=== PATIENT | male | born 1940 | race Caucasian/White ===

== ENCOUNTER → 2023-06-02 11:41 | Outpatient (REF) | payer MEDICARE, BC, SELFPAY | LOC: RAD 11:41 | PROVIDERS: ATTENDING PHYSICIAN Registered Nurse | DX: M89.8X9 Other specified disorders of bone, unspecified site (principal) | CPT/HCPCS: 73080 ==

== ENCOUNTER → 2023-06-13 08:38 | Outpatient (REF) | payer MEDICARE, BC, SELFPAY | LOC: RAD 08:38 | PROVIDERS: ATTENDING PHYSICIAN Nurse Practitioner Adult Health | DX: M25.561 Pain in right knee (principal) | CPT/HCPCS: 73564 ==

== ENCOUNTER → 2023-07-21 16:23 | Outpatient (REF) | payer MEDICARE, BC, SELFPAY | LOC: PAVMRI 16:23 | PROVIDERS: ATTENDING PHYSICIAN Specialist; FAMILY PHYSICIAN Registered Nurse | DX: R26.81 Unsteadiness on feet (principal) | CPT/HCPCS: 70551 ==

== ENCOUNTER 2023-10-08 11:48 | Emergency (ER) | payer MEDICARE, BC, SELFPAY ==
[2023-10-08 11:51] VITALS: BP 155/59
[2023-10-08 12:27] VITALS: BMI 27.3
[2023-10-08 12:36] VITALS: BP 164/61
--- NOTE | 2023-10-08 12:47 | ED.GENMED ---
History of Present Illness
General
Chief Complaint: Chest Pain
Source: patient
Exam Limitations: none
Time Seen by Provider: 10/08/23 12:40
Nursing documentation reviewed up to this point in time: agreed with
History of Present Illness
History of Present Illness:
83-year-old male with past medical history of CABG diabetes, hypertension hyperlipidemia presents to the ER with chest pain. Patient reports over 11 AM while sitting he felt pain to the left chest and left armpit area which radiated to his left arm
down to his fingertips. He had no associate shortness breath nausea vomiting with episode. He does report he believes 3-4 nights ago he was awoken by similar episode. He did take 650 mg of adult strength aspirin.
This does not feel similar to when he had his bypass surgery years ago. That was done in [place]. He is followed however by Dr. Lin here at [facility]. He presently reports pain is about a 2 out of 10' and going away.'
Past History
Past History
ED Past Medical History: CAD, COPD, HTN, Hypercholesterolemia, NIDDM, Hypothyroidism and Other
ED Past Surgical History: Cardiac and Other
Social History
Tobacco: Former smoker (Quit 35 years ago)
Alcohol: None
Personal:
Living: with family
Employment: Retired
Family History
Family History: Other (Noncontributory)
Review of Systems
Review of Systems
Allergies reviewed?: Yes
All Other Systems: ROS reviewed and negative except as documented in HPI and ROS
Constitutional: Reports no symptoms; Denies fever, fatigue or chills
EENT: Reports no symptoms
Respiratory: Reports no symptoms; Denies trouble breathing
Cardiac: Reports chest pain; Denies diaphoresis, palpitations or syncope
ABD/GI: Reports no symptoms
: Reports no symptoms
Musculoskeletal: Reports no symptoms
Skin: Reports no symptoms
Neurological: Reports no symptoms
Psychiatric: Reports no symptoms
Phy Exam
General Physical Exam
General Presentation: no apparent distress
General age: appears stated age
General Skin: warm and dry
General Habitus: normal
General Mental: alert
General Hydration: appears well hydrated
Cardiovascular Exam
Cardiovascular Exam: regular rate/rhythm, no murmur and normal peripheral pulses
Pulmonary Exam
Pulmonary Exam: lungs clear and no respiratory distress
Neurological Exam
Neurological Exam: alert and oriented x3
Musculoskeletal Exam
Musculoskeletal Exam: full ROM
Skin Exam
Skin Exam: normal color and warm/dry
Psychiatric Exam
Psychiatric Exam: normal mood/affect
Scores
Heart Score for Chest Pain Patients
STEMI patient?: Not applicable
Course
Orders/Labs/Results
Orders:
Orders
10/08/23 11:54
Electrocardiogram (*1) Urgent
Reason for Study: Chest Pain
EKG- Treatment ONCE
10/08/23 12:38
Complete Blood Count/With Diff Urgent
Comprehensive Metabolic Panel Urgent
Troponin I Urgent
10/08/23 12:59
Chest [CR Chest - 2 Views ] Urgent
Comment:
Reason For Exam: cp
10/08/23 13:49
Electrocardiogram (*1) Stat
Reason for Study: Other
Other Reason for Exam: chest pain
EKG- Treatment ONCE
10/08/23 15:19
Troponin I Urgent
Abnormal Lab Results
10/08/23
12:38
RBC 4.14 L 10^6/uL
(4.70-6.10)
Hgb 11.8 L g/dL
(13.0-18.0)
Hct 34.8 L %
(39.0-52.0)
MPV 10.5 H fL
(7.4-10.4)
Absolute Lymphs (auto) 1.0 L 10^3/uL
(1.2-3.4)
Immature Gran % 0.7 H %
(0-0.5)
Lymphocytes % 17.9 L %
(20.5-51.1)
Sodium 134 L mmol/L
(135-145)
Glucose 118 H mg/dl
(70-99)
Total Protein 6.1 L g/dl
(6.3-8.2)
10/08/23 12:38
10/08/23 12:38
Vital Signs
Initial and Last Documented VS:
Initial Vital Signs
Temp Pulse Resp BP
98.0 F 53 18 155/59
10/08/23 11:51 10/08/23 11:51 10/08/23 11:51 10/08/23 11:51
Last Documented Vital Signs
Temp Pulse Resp BP Pulse Ox
98.0 F 62 16 138/60 98
10/08/23 11:51 10/08/23 14:30 10/08/23 14:30 10/08/23 14:00 10/08/23 14:30
MDM/Problems Addressed
MDM/Problems Addressed:
Patient is an 83-year-old male who presented to the ER with chest pain. He had chest pain several days ago and then had chest pain/left armpit pain that radiated to his arm prior to coming to the ER while resting. He had no associated shortness of
breath with symptoms. He presented awake alert no acute distress.
Patient initially presented with chest pain around 2 out of 10 but resolving and resolved on his own. No acute findings on EKG negative cardiac troponin. Chest x-ray shows chronic obstructive pulmonary disease.
Patient had 2 negative cardiac troponins and no acute findings on ekg. will DC home with chest pain hotline follow-up for DR Lin.
Chronic conditions affecting care:
hx of previous CABG
*Radiology
Radiology exam reviewed: radiology read reviewed
*Pulse Oximetry
Patient hypoxic: no
*EKG
Interpreted by ED Provider?: Yes
Heart Rate: 54
Rate: bradycardiac
Rhythm: sinus
Ischemia: no ischemia
*Critical Care Note
Total Time (30-74mins, 75-104mins- exclusive of procedures): Not Applicable
ED Attending Note
-
Portions of this chart may have been created with voice recognition software.� Occasional wrong word or��sound alike� substitutions may have occurred due to the inherent limitations of voice recognition software.
Discharge Plan
Departure
Patient Disposition: Home (Routine Discharge)
Date of Disposition: 10/08/23
Time of Disposition: 16:20
Patient with high blood pressure during this ER visit?: Yes
Condition: Fair
Covid-19: Not Applicable
Discharge Problem:
Chest pain
Instructions: Chest Pain CBC Follow Up
Prescriptions:
No Action
levothyroxine 112 MCG tablet
112 mcg PO DAILY
carvedilol 12.5 MG tablet
25 mg PO BID
omeprazole 40 MG capsule,delayed release(DR/EC)
40 mg PO Daily
rosuvastatin 20 MG tablet
20 mg PO QPM
cholecalciferol (vitamin D3) 1,000 UNITS tablet
1,000 units PO DAILY
aspirin [Adult Aspirin Regimen] 81 MG tablet,delayed release (DR/EC)
81 mg PO DAILY
hydrochlorothiazide 25 MG tablet
25 mg PO DAILY
olmesartan [Benicar] 40 MG tablet
40 mg PO DAILY
cyanocobalamin (vitamin B-12) 1,000 MCG tablet
1,000 mcg PO HS
acetaminophen 500 MG tablet
500 mg PO PRN PRN (Reason: aches and pains)
doxazosin 2 MG tablet
2 mg PO HS
ibuprofen 200 MG tablet
400 - 600 mg PO Q6HPRN PRN (Reason: moderate pain) Qty: 1 0RF
metformin 500 MG tablet
500 mg PO BID Qty: 0 0RF
Rx Instructions:
HOLD post cath- OK to resume on 11/23 in PM
nifedipine 30 MG tablet extended release
30 mg PO DAILY Qty: 90 2RF
metronidazole 500 MG tablet
500 mg PO TID Qty: 20 0RF
levofloxacin 500 MG tablet
500 mg PO DAILY Qty: 6 0RF
Referrals:
Frankie Lin MD [Active] -
Dante Hoover CRNP [Family Provider] -
Activity Restrictions/Additional Instructions:
As discussed follow-up with cardiology
You were placed on cardiology hotline which means you should receive a phone call from the cardiology group in the next several days however if you do not please give them a call to schedule appointment. Return if any worsening of symptoms.
Interventions
Interventions:
*Risk Screen - Suicide Last Done: 10/08/23 11:51
*General Assessment Last Done: 10/08/23 11:51
*Neglect/Abuse Screening Last Done: 10/08/23 11:51
*ED COVID-19 Vaccine History Last Done: 10/08/23 11:51
ED- Cardiac Assessment Last Done: 10/08/23 13:10
Discharge Date and Time
Print Language: FRISIAN
[2023-10-08 12:53] VITALS: BP 164/62
[2023-10-08 13:00] VITALS: BP 142/58
[2023-10-08 13:12] LABS: % Basophils 0.5 % (0-2); % Eosinophils 1.6 % (0-6); % Immature Granulocytes 0.7 % (0-0.5); % Lymphocytes 17.9 % (20.5-51.1); % Neutrophils 72.3 % (42.2-75.2); ALT (SGPT) 13 U/L (0-50); AST (SGOT) 19 U/L (17-59); Absolute Eosinophils 0.1 10^3/uL (0-0.7); Absolute Monocytes 0.4 10^3/uL (0.1-0.6); Absolute Neutrophils 4.1 10^3/uL (1.4-6.5); Alkaline Phosphatase 65 U/L (38-126); Blood Urea Nitrogen 18 mg/dl (9-20); Calcium 9.2 mg/dl (8.4-10.2); Carbon Dioxide 25 mmol/L (22-30); Chloride 103 mmol/L (98-107); Estimated Creatinine Clearance 40 ml/min; Glucose 118 mg/dl (70-99); Hematocrit 34.8 % (39.0-52.0); Hemoglobin 11.8 g/dL (13.0-18.0); Mean Corp Hgb Conc. 33.9 g/dL (33.0-37.0); Mean Corpuscular Hgb 28.5 pg (27.0-31.0); Mean Corpuscular Volume 84.1 fL (80.0-94.0); Mean Platelet Volume 10.5 fL (7.4-10.4); Nucleated Red Blood Cells % 0 % (-); Platelet Count 191 10^3/uL (130-400); Potassium 4.6 mmol/L (3.5-5.1); Red Blood Cell Count 4.14 10^6/uL (4.70-6.10); Red Cell Dist. Width 13.5 % (11.5-14.5); Sodium 134 mmol/L (135-145); Total Bilirubin 0.5 mg/dl (0.2-1.3); Total Protein 6.1 g/dl (6.3-8.2); White Blood Cell Count 5.7 10^3/uL (4.8-10.8); eGFR 54.51
[2023-10-08 13:17] LABS: Troponin I < 0.012 ng/ml
[2023-10-08 14:00] VITALS: BP 138/60
[2023-10-08 15:49] LABS: Troponin I < 0.012 ng/ml
== END 2023-10-08 16:57 | disposition home or self-care (01) ==
LOC: EMR 11:48
PROVIDERS: Emergency Medicine; Nurse Practitioner; EMERGENCY PHYSICIAN Emergency Medicine; FAMILY PHYSICIAN Registered Nurse; REFERRING PHYSICIAN Internal Medicine
DX: R07.89 Other chest pain (principal); M79.602 Pain in left arm; I10 Essential (primary) hypertension; E11.9 Type 2 diabetes mellitus without complications; E78.00 Pure hypercholesterolemia, unspecified; I25.10 Atherosclerotic heart disease of native coronary artery without angina pectoris; E03.9 Hypothyroidism, unspecified; J44.9 Chronic obstructive pulmonary disease, unspecified; K57.90 Diverticulosis of intestine, part unspecified, without perforation or abscess without bleeding; M19.90 Unspecified osteoarthritis, unspecified site; Z95.1 Presence of aortocoronary bypass graft; Z87.891 Personal history of nicotine dependence; Z79.82 Long term (current) use of aspirin; Z79.84 Long term (current) use of oral hypoglycemic drugs; Z88.0 Allergy status to penicillin; Z96.652 Presence of left artificial knee joint
CPT/HCPCS: 99284; 71046; 80053; 84484; 85025; 93005

== ENCOUNTER 2023-10-14 06:03 | Day surgery (SDC) | payer MEDICARE, BC, SELFPAY ==
[2023-10-14] VITALS (9 sets, daily range): BP systolic 120–147; BP diastolic 44–58; BMI 28.3
[2023-10-14 06:58] LABS: Glucose - Point of Care 132 mg/dl (70-99)
[2023-10-14] MEDS: NSS 238 ML IV (07:00)
--- NOTE | 2023-10-14 08:41 | ITS.CL.CATH ---
Drop Worker - Catheterization
Cardiac Catheterization
Procedure Report:
CARDIAC CATHETERIZATION REPORT
Date of Procedure: 10/14/2023
Referring: Pete Velasco M.D.
INDICATION: Left-sided chest pain, known coronary artery disease status post two-vessel bypass.
PROCEDURE:
1. Left heart catheterization.
2. Coronary angiography.
3. Bypass angiography.
ACCESS:
6 Jordanian left radial artery.
CATHETERS:
1. 5 Jordanian GUEVARA.
2. 5 Jordanian JL 4.
3. 5 Jordanian JR4.
HEMODYNAMIC DATA
Weight (kg): 79.3
AO (s/d/x, mmHg): 125/53/83
LV (s/x mmHg): 125/14
LEFT VENTRICULOGRAPHY: Not performed.
CORONARY ANGIOGRAPHY
Dominance: Right.
Left Main: Chronically totally occluded at its origin.
LAD: Normal size vessel giving rise to several small diagonals. The LAD is chronically totally occluded at its midportion. The distal LAD is supplied by a patent SALES graft.
Ramus: Congenitally absent
Circumflex: Normal size vessel giving rise to 2 obtuse marginals. There is a 75% lesion in the proximal margin of OM1. OM 2 has moderate, diffuse disease in its proximal and midportion but is a relatively small vessel, <2 mm in diameter. The
circumflex system is supplied by a patent vein graft to OM1 that is anastomosed distal to the 75% OM1 lesion.
RCA: Normal size, dominant vessel. There are 30-40% lesions in the mid vessel. There is a 40% lesion in the mid RPDA.
BYPASS GRAFT ANGIOGRAPHY
SALES to LAD: Large size graft with end-to-side anastomosis to the distal LAD. There is no evidence of stenosis or graft degeneration.
SVG to OM1: Large size graft with end-to-side anastomosis to mid OM1. There is no evidence of stenosis or graft degeneration. The insertion of the SVG graft is distal to the 75% OM1 lesion.
INTERVENTION(S)
None.
Closure Device: Vascular band.
Radiation (mGy): 435.50
DAP (cm2.Gy): 38.7489
Fluoroscopy time (minutes): 7.7
Sedation time (minutes): 33
CONCLUSIONS
1. Right dominant circulation with 30-40% lesions in the mid RCA, a 40% lesion in the mid RPDA, a chronically totally occluded left main coronary artery, chronically totally occluded mid LAD, a 75% lesion in the proximal margin of OM1 and a
moderately, diffusely diseased small OM 2, status post prior bypass (patent SALES to mid LAD, beyond the DIRECTOR PRODUCT SAFETY, patent SVG to OM1, distal to the 75% OM1 lesion).
2. Top normal to mildly elevated filling pressures (LVEDP = 14 mmHg at 79.3 kg).
RECOMMENDATIONS:
1. Expectant management after cardiac catheterization via left radial approach.
2. Limited weight bearing on the left wrist for one week.
3. Continue current medical management.
4. If the patient were to have anginal chest pain, the insertion of the SVG to OM1 graft is at a generally favorable angle to allow for PCI of the 75% lesion if that was felt to be an appropriate maneuver for anginal chest pain, but the patient's
episode of chest pain is not convincing for true anginal equivalent and his coronary artery disease appears stable.
Copy to: Frankie Lin M.D., Ph.D., YOLANDA Lanier
Giuseppe Cardenas DO, FACC, FACP
[2023-10-14] MEDS: NSS 1000 IV (08:51)
[2023-10-14 10:28] LABS: Glucose - Point of Care 204 mg/dl (70-99)
== END 2023-10-14 11:05 | disposition home or self-care (01) ==
LOC: CATH 06:03
PROVIDERS: ATTENDING PHYSICIAN Internal Medicine Cardiovascular Disease; FAMILY PHYSICIAN Registered Nurse
DX: I25.10 Atherosclerotic heart disease of native coronary artery without angina pectoris (principal); I25.810 Atherosclerosis of coronary artery bypass graft(s) without angina pectoris; R07.89 Other chest pain; I25.82 Chronic total occlusion of coronary artery; Z95.1 Presence of aortocoronary bypass graft; Z79.84 Long term (current) use of oral hypoglycemic drugs; Z79.899 Other long term (current) drug therapy; Z79.82 Long term (current) use of aspirin; J44.9 Chronic obstructive pulmonary disease, unspecified; E11.9 Type 2 diabetes mellitus without complications; E03.9 Hypothyroidism, unspecified
CPT/HCPCS: 82962; 93459; C1894; Q9967

== ENCOUNTER → 2024-06-07 10:54 | Outpatient (REF) | payer MEDICARE, BC, SELFPAY | LOC: DHSLP 10:54 | PROVIDERS: ATTENDING PHYSICIAN Internal Medicine; FAMILY PHYSICIAN Registered Nurse | DX: G47.33 Obstructive sleep apnea (adult) (pediatric) (principal) | CPT/HCPCS: 95800 ==

== ENCOUNTER 2024-09-14 14:28 | Inpatient (IN) | payer MEDICARE, BC, SELFPAY ==
[2024-09-14 09:37] VITALS: BP 148/52
--- NOTE | 2024-09-14 10:33 | ED.GENMED ---
History of Present Illness
General
Chief Complaint: Chest Pain
Source: patient
Time Seen by Provider: 09/14/24 09:57
History of Present Illness
History of Present Illness:
84-year-old male who presents for evaluation of chest pain. Patient states that the other day he was walking up a hill and developed chest pressure. Chest pressure resolved after little bit of rest. Patient states that last night he awoke again
with chest pain. States it lasted maybe about 15 minutes and resolved after he sat up. Denies shortness of breath. Does state that he has had a two-vessel CABG in the past. The patient states his symptoms are very similar to what they were in
the past. Currently offers no complaints and has no chest pain. Patient presented to urgent care and was sent for evaluation. Case was discussed with the urgent care physician Dr. Torres
Past History
Past History
ED Past Medical History: CAD, COPD, HTN, Hypercholesterolemia, NIDDM, Hypothyroidism and Other
ED Past Surgical History: Cardiac and Other
Social History
Tobacco: Former smoker (Quit 35 years ago)
Alcohol: None
Personal:
Living: with family
Employment: Retired
Family History
Family History: Other (Noncontributory)
Phy Exam
Physical Exam
Physical Exam:
CONSTITUTIONAL Patient alert and oriented to person, place and time. Well-appearing. Vital signs reviewed.
HEAD atraumatic, normocephalic.
EYES eyelids normal to inspection, Extraocular muscles intact, Conjunctiva normal, Sclera normal.
NECK normal range of motion, Trachea midline, no jugular venous distention.
RESPIRATORY CHEST No respiratory distress noted, Chest expansion equal, Bilateral breath sounds clear.
CARDIOVASCULAR regular rate and rhythm, Heart sounds normal.
ABDOMEN abdomen nontender, Bowel sounds normal. No distention.
BACK normal inspection, no obvious deformities
UPPER EXTREMITY range of motion normal, Motor strength normal, no cyanosis, no edema.
LOWER EXTREMITY range of motion normal, Motor strength normal, no cyanosis, no edema.
NEURO Speech normal, No focal motor deficits, [place] coma scale 15, Memory normal, Cranial Nerves intact to screening exam.
SKIN skin warm, dry, and normal in color.
Scores
Heart Score for Chest Pain Patients
STEMI patient?: No
History: Highly Suspicious
ECG: Nonspecific Repolarization
Age: >/= 65 years
Risk Factors: >/= 3 Risk Factors or History of CAD
Troponin: </= Normal Limit
Heart Score for Chest Pain Patients: 7
Heart Score Risk: 72.7 % MACE over next 6 weeks
Course
Orders/Labs/Results
Orders:
Orders
09/14/24 10:11
EKG [Electrocardiogram (*1)] Urgent
Reason for Study: Chest Pain
EKG- Treatment ONCE
09/14/24 10:23
Cardiac Monitoring- Treatment ONCE
EKG- Treatment ONCE
CR Chest - 2 Views Urgent
Comment:
Reason For Exam: cp
09/14/24 10:27
Complete Blood Count/With Diff Urgent
Comprehensive Metabolic Panel Urgent
Magnesium Urgent
Troponin I Urgent
09/14/24 11:40
0.9% Sodium Chloride 500 ml [Nss] 500 ml IV BOLUS
09/14/24 11:46
Echo 2D MMode Color/Doppler Routine
Reason for Study: chest discomfort
09/14/24 11:53
Amlodipine [Norvasc] 5 mg PO ONCE ONE
09/14/24 13:44
Admit/Transfer Patient As Directed
Co-Sign Provider:
Level of Care: Inpatient admission
Assign to:: Telemetry
Physician / Group: Radha
Diagnosis: ACS
Reason for Telemetry: Chest Pain syndromes
Date to Stop Telemetry: 09/16/24
Time to Stop Telemetry: 11:00
Reason for Hospitalization: Above
Expected length of stay greater than two midnights?: Yes
ELOS- Estimated Length of Stay in days: 2
I certify the patient meets the requirements for IP care: Yes
09/14/24 13:46
PRN Pain Medication Management As Directed
May give lesser potent ordered pain med per pt: Yes
preference::
Protocol:: Medication orders for pain may be administered in a
manner that supports deferring to patient preference
when the pt is:
- Requesting an ordered lesser potent pain medication.
Least to most potent pain medications are defined
as: acetaminophen < NSAID < tramadol < opioids
(morphine, oxycodone, hydromorphone).
- Requesting a lesser dose of the same medication IF
ORDERED.
- Requesting a less intrusive route of administration
if both routes are prescribed by the provider (PO <
IV).
09/14/24 13:50
Code Status As Directed
Resuscitation Status: Full Code
09/14/24 16:00
EKG [Electrocardiogram (*1)] Routine
Reason for Study: Chest Pain
Troponin I Q6H
09/14/24 22:00
EKG [Electrocardiogram (*1)] Routine
Reason for Study: Chest Pain
Troponin I Q6H
09/15/24 06:00
Lexiscan Stress [Nuclear lexiscan Stress Test] IN AM
Reason for Study: chest discomfort
NPO
Allow oral meds: Yes
Allow clear liquids: No
BMP [Basic Metabolic Panel] IN AM
NM Cardiac Stress IN AM
Comment:
Reason For Exam: chest discomfort
09/15/24 08:00
Amlodipine [Norvasc] 10 mg PO DAILY
09/16/24 11:00
DC Protocol for Telemetry ONCE
Abnormal Lab Results
09/14/24
10:27
WBC 3.7 L 10^3/uL
(4.8-10.8)
RBC 4.13 L 10^6/uL
(4.70-6.10)
Hgb 11.4 L g/dL
(13.0-18.0)
Hct 34.4 L %
(39.0-52.0)
RDW 14.6 H %
(11.5-14.5)
MPV 10.9 H fL
(7.4-10.4)
Absolute Lymphs (auto) 0.5 L 10^3/uL
(1.2-3.4)
Lymphocytes % 14.6 L %
(20.5-51.1)
Monocytes % 11.6 H %
(1.7-9.3)
Carbon Dioxide 21 L mmol/L
(22-30)
BUN 28 H mg/dl
(9-20)
Creatinine 1.8 H mg/dL
(0.7-1.3)
Glucose 130 H mg/dl
(70-99)
Total Protein 6.2 L g/dl
(6.3-8.2)
09/14/24 10:27
09/14/24 10:27
Vital Signs
Initial and Last Documented VS:
Initial Vital Signs
Temp Pulse Resp BP Pulse Ox
98 F 59 18 148/52 98
09/14/24 09:37 09/14/24 09:37 09/14/24 09:37 09/14/24 09:37 09/14/24 09:37
Last Documented Vital Signs
Temp Pulse Resp BP Pulse Ox
98 F 64 18 148/61 98
09/14/24 09:37 09/14/24 14:30 09/14/24 14:30 09/14/24 13:00 09/14/24 09:37
MDM/Problems Addressed
Differential Diagnosis Includes:
ACS, GERD, musculoskeletal chest pain
MDM/Problems Addressed:
Angina, hypertension
Acute Exacerbation and/or Progression of Chronic Illness: HTN
*Pulse Oximetry
Patient hypoxic: no
*EKG
Interpreted by ED Provider?: Yes
Interpretation: normal
Rate: normal
Rhythm: sinus
Gilbert: normal axis
Interval: normal interval
Ischemia: no ischemia
*Hydrometeorology Teacher Interpretation
Rate: normal
Interpretation: normal
Rhythm: sinus
*Critical Care Note
Total Time (30-74mins, 75-104mins- exclusive of procedures): Not Applicable
Data Reviewed
Review of Other/Old Records Reveals: Operative Reports (Cardiac catheterization from October 2023 revealed: If the patient were to have anginal chest pain, the insertion of the SVG to OM1 graft is at a generally favorable angle to allow for PCI of the
75% lesion if that was felt to be an appropriate maneuver for anginal chest pain, but the patient's episod)
Source: patient and physician
Prescriptions/Medications Considered But Not Given:
Considered nitroglycerin but no current chest pain.
Patient Management
Discussion with other providers: Hospitalist and Ware Cleaner (Case discussed with Dr. Velasco)
Escalation/DeEscalation of care consider admission/obs:
84-year-old male with history of coronary disease. Cath 1 year ago did show 75% lesion. Given his recent symptoms, will be seen by cardiology in the emergency department. EKG okay no current chest pain
Update Note
Update Note:
Patient seen by cardiology. Recommends admission for likely stress due to complicated lesion. May need cath. Admit to hospitalist
ED Attending Note
-
Portions of this chart may have been created with voice recognition software.� Occasional wrong word or��sound alike� substitutions may have occurred due to the inherent limitations of voice recognition software.
Discharge Plan
Departure
Patient Disposition: Admit
Date of Disposition: 09/14/24
Time of Disposition: 11:41
Admit to: Telemetry
Presentation/result/management discussed w/ accepting MD/DO: Hospitalist
Discharge Problem:
Unstable angina, Acute kidney injury
Interventions
Interventions:
*Risk Screen - Suicide Last Done: 09/14/24 09:37
*General Assessment Last Done: 09/14/24 09:37
*Neglect/Abuse Screening Last Done: 09/14/24 09:37
ED- Cardiac Assessment Last Done: 09/14/24 10:37
[2024-09-14 10:51] LABS: % Basophils 0.5 % (0-2); % Eosinophils 2.4 % (0-6); % Immature Granulocytes 0.5 % (0-0.5); % Lymphocytes 14.6 % (20.5-51.1); % Monocytes 11.6 % (1.7-9.3); % Neutrophils 70.4 % (42.2-75.2); Absolute Eosinophils 0.1 10^3/uL (0-0.7); Absolute Lymphocytes 0.5 10^3/uL (1.2-3.4); Absolute Monocytes 0.4 10^3/uL (0.1-0.6); Absolute Neutrophils 2.6 10^3/uL (1.4-6.5); Hematocrit 34.4 % (39.0-52.0); Hemoglobin 11.4 g/dL (13.0-18.0); Mean Corp Hgb Conc. 33.1 g/dL (33.0-37.0); Mean Corpuscular Hgb 27.6 pg (27.0-31.0); Mean Corpuscular Volume 83.3 fL (80.0-94.0); Mean Platelet Volume 10.9 fL (7.4-10.4); Nucleated Red Blood Cells % 0 % (-); Platelet Count 139 10^3/uL (130-400); Red Blood Cell Count 4.13 10^6/uL (4.70-6.10); Red Cell Dist. Width 14.6 % (11.5-14.5); White Blood Cell Count 3.7 10^3/uL (4.8-10.8)
--- NOTE | 2024-09-14 10:52 | CON.CAR ---
Addendum entered and electronically signed by Pete Velasco MD 09/14/24 12:49:
Patient seen and examined in collaboration with SURVEY MANAGER; agree with below.
- 84-year-old male (known to Dr. Lin, his primary Technology Instructor) with coronary artery disease status-post CABG (2005), hypertension, hyperlipidemia, diabetes, and diabetes presenting with 2 days of recurrent midsternal chest pain, consistent with
angina.
- The current EKG is unremarkable and cardiac troponin is negative.
- The patient is symptoms are consistent with angina, but coronary status/anatomy is complicated; report and cardiac catheterization images from last year were reviewed with Formal Service Waiter today.
- Having given patient's acute on chronic CKD, patient will be managed conservatively initially, given unremarkable EKG and negative cardiac enzymes.
- Will increase amlodipine.
- Will obtain a Lexiscan stress test tomorrow to determine ischemic burden; if small, patient will be managed medically (nitrates, Ranexa)--but if a large area of compromise, patient will undergo more aggressive therapy (cardiac catheterization).
- Recommend Nephrology consultation.
- Will update echocardiogram.
- Admit to Hospitalist service; director equipment.
- Cardiology will follow.
Original Note:
Consultation
Consultation Request
Date/Time Consultation Requested: 09/14/24 1044
Date/Time Consultation Performed: 09/14/24 1055
Requesting Provider: Dr. Davis
Performing Provider: Aurora GUERRERO for Dr. Velasco
Reason for Consultation: chest discomfort
Medical History
-
Chief Complaint: chest discomfort
History of Present Illness:
84 y/o male with PMH CAD with hx CABG 2005, HFpEF, mild to moderate TR, PE previously on Eliquis, hypertension, diabetes, CKD3A, HLD, GERD, asthma, and anemia who is here for evaluation of chest discomfort. Briefly, over the past 2 days he has had
two episodes of chest discomfort. Once, while going up an incline- it was a midsternal pressure/tightness, which resolved after 5 minutes of rest. Then, overnight, around midnight he had that same feeling for about 10 minutes, while in bed. He went
to urgent care and they sent him here. He is CP free. EKG and trop normal. DOMENIC is noted.
Past Medical History
Past Medical History: CAD, CHF, HTN, Hypercholesterolemia, NIDDM, Valvular Disease and Other (as above)
Social History
Tobacco: Former Smoker
Family History
Family History: Reviewed & Not Pertinent
Allergies / Home Medications
Allergy/AdvReac Type Severity Reaction Status Date / Time
Penicillins Allergy Mild Itching Verified 09/14/24 09:41
�Medication �Instructions �Recorded �Confirmed �Type
levothyroxine 112 mcg tablet 112 mcg PO DAILY 11/17/17 10/14/23 History
carvedilol 12.5 mg tablet 25 mg PO BID 03/31/19 10/14/23 History
omeprazole 40 mg capsule,delayed 40 mg PO Daily 03/31/19 10/14/23 History
release
rosuvastatin 20 mg tablet 20 mg PO QPM 03/31/19 10/14/23 History
aspirin 81 mg tablet,delayed 81 mg PO DAILY 11/29/19 11/21/20 History
release (Adult Aspirin Regimen)
olmesartan 40 mg tablet (Benicar) 40 mg PO DAILY 11/29/19 10/14/23 History
acetaminophen 500 mg tablet 500 mg PO PRN PRN aches and pains 02/08/20 10/14/23 History
cyanocobalamin (vitamin B-12) 1,000 mcg PO HS 02/08/20 10/14/23 History
1,000 mcg tablet
ibuprofen 200 mg tablet 400 - 600 mg (2 - 3 x 200 mg) PO 02/08/20 10/14/23 Rx
Q6HPRN PRN moderate pain #1 tab
metformin 500 mg tablet 500 mg PO BID ##0 11/21/20 11/21/20 Rx
amlodipine 5 mg tablet 5 mg DAILY 10/14/23 10/14/23 History
amlodipine 5 mg tablet 5 mg PO DAILY 10/14/23 10/14/23 History
dapagliflozin propanediol 5 mg 5 mg PO DAILY 10/14/23 10/14/23 History
tablet (Farxiga)
finasteride 5 mg tablet 5 mg PO DAILY 10/14/23 10/14/23 History
tamsulosin 0.4 mg capsule 0.4 mg PO DAILY 10/14/23 10/14/23 History
Review of Systems
-
History Source: Patient
All other systems: Negative unless noted
Cardiac: Chest Pain
Physical Exam
Vital Signs
Temp Pulse Resp BP Pulse Ox
98 F 59 18 148/52 98
09/14/24 09:37 09/14/24 09:37 09/14/24 09:37 09/14/24 09:37 09/14/24 09:37
Lab Results
09/14/24 10:27
Physical Exam
General: Well Developed, Well Nourished and No Apparent Distress
HEENT: Normocephalic and Anicteric
Respiratory: Clear and Non Labored Respirations
Cardiac: Regular Rhythm
Musculoskeletal: No Edema
Skin: Warm and Dry
Neuro: AO x 3
Psych: Calm
Impression / Plan
-
Chest discomfort:
-concern for angina
-first trop and EKG stable, continue to trend
-increase CCB, plan for stress test in AM for further evaluation- based on results stress test will plan for med management versus cath -reviewed case with interventional cardiology
-obtain echo
DOMENIC on CKD:
-reports he has seen Dr. Nguyễn as OP
-most recent OP creatinine 1.2, currently 1.8
-recommend nephro consult, particularly since patient may need cath
CAD with hx CABG:
-continue ASA, statin, BB. Increase antianginal as above.
-eval as above
HFpEF: chronic
-stable, not volume overloaded
DM2:
-management per primary team
HTN:
-stable
-monitor with med adjustements
Data Reviewed
-
EKG: Tracing Personally Visualized and interpreted (NSR 60 BPM )
Radiology: Report Reviewed by me (CXR: Lungs are hyperinflated, appearance compatible with emphysema. Lungs appear clear. The cardiac silhouette, vascular markings, and mediastinal shadow appear normal)
Medical Tests (Nuc Med, Echo etc): Other (echo ordered)
Labs: Labs Reviewed by me
[2024-09-14 11:03] LABS: ALT (SGPT) 13 U/L (0-50); AST (SGOT) 19 U/L (17-59); Albumin 4.1 g/dl (3.5-5.0); Alkaline Phosphatase 75 U/L (38-126); Blood Urea Nitrogen 28 mg/dl (9-20); Calcium 8.9 mg/dl (8.4-10.2); Carbon Dioxide 21 mmol/L (22-30); Chloride 107 mmol/L (98-107); Glucose 130 mg/dl (70-99); Magnesium 1.9 mg/dl (1.6-2.3); Potassium 5.1 mmol/L (3.5-5.1); Sodium 137 mmol/L (135-145); Total Bilirubin 0.4 mg/dl (0.2-1.3); Total Protein 6.2 g/dl (6.3-8.2); eGFR 36.66
[2024-09-14 11:13] LABS: Troponin I < 0.012 ng/ml
[2024-09-14] MEDS: NSS 500 IV (12:21)
--- NOTE | 2024-09-14 12:42 | CM ---
CM reviewed chart and met with pt bedside in ED. Lives with his in 2 story home, [address], office on first floor, bed/bath 2nd floor. Ambulates independently, has walker and cane from previous surgery. Past history of [facility], no SNF history.
PCP: Dante Hoover
Pharmacy: [facility]
Plan: home pending ongoing medical evaluation
[2024-09-14 13:00] VITALS: BP 148/61
[2024-09-14] MEDS: NORVASC 5 MG PO (13:08)
--- NOTE | 2024-09-14 13:56 | HPS.HSE ---
Family Physician
-
Family Physician: YOLANDA Lanier
Chief Complaint
-
Chest pain
History of Present Illness
Patient is a 84 years old male with prior history of coronary artery disease, CABG who presents to the hospital with persistent chest pain. Patient described initially pressure-like chest pain with exertion, although today same type of pain woke
him up from sleep. Patient has subjective dyspnea at the time of pain. He describes the pain similar to prior when patient had a myocardial infarction followed by bypass graft.
On presentation to the emergency room patient is hemodynamically stable.
He denies any fever, upper respiratory, urinary symptoms.
Patient treated for inguinal rash by primary physician initially with antifungal and later with mupirocin and Bactrim.
Additional workup while in the ED consistent with unremarkable ECG with no evidence of ischemia and negative cardiac markers.
BMP relevant for elevated creatinine 1.8 and potassium 5.1.
Medical History
Past Medical History
Past Medical History: Reports CAD, HTN, Hypothyroidism and NIDDM
Additional Past Medical History:
BPH
Past Surgical History: Reports Cardiac
Additional Past Surgical History:
CABG
Social History
Tobacco: Non-smoker
Alcohol: None
Drug: None
Living: With Family
Employment: Retired
Family History
Family History: Not pertinent
Allergies / Home Medications
Allergies reflects when Allergies were last updated in [facility].
Home Medications with original date entered in [facility]
Allergy/Medication List:
Allergies
Allergy/AdvReac Type Severity Reaction Status Date / Time
Penicillins Allergy Mild Itching Verified 09/14/24 09:41
Home Medications
levothyroxine 112 mcg tablet 112 mcg PO DAILY 11/17/17
carvedilol 12.5 mg tablet 12.5 mg PO BID 03/31/19
omeprazole 40 mg capsule,delayed release 40 mg PO Daily 03/31/19
rosuvastatin 20 mg tablet 20 mg PO QPM 03/31/19
olmesartan 40 mg tablet (Benicar) 40 mg PO QPM 11/29/19
acetaminophen 500 mg tablet 500 mg PO Q6HPRN PRN mild pain 02/08/20
cyanocobalamin (vitamin B-12) 1,000 mcg tablet 1,000 mcg PO HS 02/08/20
amlodipine 5 mg tablet 5 mg PO DAILY 10/14/23
finasteride 5 mg tablet 5 mg PO QPM 10/14/23
tamsulosin 0.4 mg capsule 0.4 mg PO DAILY 10/14/23
aspirin 81 mg tablet,delayed release 81 mg PO DAILY 09/14/24
dapagliflozin propanediol 10 mg tablet (Farxiga) 10 mg PO DAILY 09/14/24
metformin 500 mg tablet 500 mg PO DAILY 09/14/24
mupirocin 2 % topical ointment 1 applic topical BID groin 09/14/24
sulfamethoxazole 800 mg-trimethoprim 160 mg tablet (Bactrim DS) 1 tab PO BID 09/14/24
Review of Systems
-
A 12 point ROS was completed and negative except as noted: Yes
Physical Exam
Vital Signs
Vital Signs
Temp Pulse Resp BP Pulse Ox
98 F 73 18 148/52 98
09/14/24 09:37 09/14/24 11:45 09/14/24 11:45 09/14/24 09:37 09/14/24 09:37
Physical Exam
General: Well Developed, Well Nourished and No Apparent Distress
HEENT: NormoCephalic, Moist mucous membranes and Atraumatic
Respiratory: Clear
Cardiac: S1/S2 and Regular Rhythm; No Murmur or Rub
GI: Soft, Non Tender, Non Distended and Normal Bowel Sounds; No Organomegaly
Rectal: Deferred by Provider
Musculoskeletal: No Clubbing, No Cyanosis and No Edema
Skin: No Rash
Neuro: Nonfocal/grossly intact
Laboratory Results
-
09/14/24 10:27
09/14/24 10:27
Laboratory Results
Total Bilirubin 0.4 mg/dl (0.2-1.3) 09/14/24 10:27
AST 19 U/L (17-59) 09/14/24 10:27
ALT 13 U/L (0-50) 09/14/24 10:27
Alkaline Phosphatase 75 U/L (38-126) 09/14/24 10:27
Troponin I < 0.012 ng/ml 09/14/24 10:27
Impression/Plan
-
IMPRESSION:
Presentation is chest pain
Suspected acute coronary syndrome/accelerated angina
CAD status post CABG.
Acute kidney injury.
Other conditions:
Heart failure preserved EF, chronic.
Diabetes type 2.
Hypothyroidism
BPH
PLAN:
Chest pain
Suspect acute coronary syndrome/accelerated angina
Cardiology input appreciated
Catheterization last year with complicated anatomy.
Hemodynamically stable with no evidence for ischemia on ECG and normal cardiac enzymes.
Plan is for nuclear stress test baseline echocardiogram.
Depends on above-mentioned workup decision to be made for catheterization.
Continue preadmission regimen including Coreg, amlodipine dose increased upon admission.
Continue aspirin and statin
Acute kidney injury baseline patient has no documented CKD
BPH with no symptoms of retention.
Suspect DOMENIC is secondary to recently initiated Bactrim for inguinal rash as well as in the presence of ARB (olmesartan) noted very mild hyperkalemia.
Check urine sodium
Urinalysis with sediment
Bladder scan for retention well continue preadmission finasteride and tamsulosin
Hold Bactrim, olmesartan. Hold metformin. Avoid nephrotoxins. No NSAIDs.
Gentle hydration monitor volume status closely
Follow BMP.
If renal function worsening, consider nephrology evaluation
Type 2 diabetes.
Check hemoglobin A1c
Carbohydrate controlled diet
Hold metformin
Basal bolus protocol
Inguinal rash fungal as per patient resolved.
Patient declined examination in the area.
May continue mupirocin
Hypothyroidism on replacement
Full code
[2024-09-14 16:17] VITALS: BMI 29.1
[2024-09-14 16:18] VITALS: BP 146/62
[2024-09-14 16:44] LABS: Glucose - Point of Care 117 mg/dl (70-99)
[2024-09-14] MEDS: ASPIR LOW (ENTERIC COATED) 81 MG PO (17:06)
[2024-09-14] MEDS: NSS 1000 IV (17:06)
[2024-09-14] MEDS: PROSCAR 5 MG PO (17:07)
[2024-09-14] MEDS: CRESTOR 20 MG PO ×2 (17:08)
[2024-09-14 17:34] VITALS: BMI 29.1
[2024-09-14 19:54] VITALS: BP 151/76
[2024-09-14 20:27] LABS: Troponin I < 0.012 ng/ml
[2024-09-14] MEDS: BACTROBAN 2% OINTMENT 1 APPLIC TOPICAL (21:00)
[2024-09-14] MEDS: VITAMIN B-12 1000 MCG PO (21:01)
[2024-09-14] MEDS: HEPARIN 5000 UNITS SC (21:01)
[2024-09-14 21:07] LABS: Glucose - Point of Care 132 mg/dl (70-99)
[2024-09-14] MEDS: COREG PO (21:46)
[2024-09-14 21:52] LABS: Urine Albumin 2+ (Neg - Trace); Urine Bilirubin Negative (Negative); Urine Character Clear (Clear); Urine Color Yellow; Urine Glucose 4+ (Negative); Urine Ketone Negative (Negative); Urine Leukocyte Negative (Negative); Urine Nitrite Negative (Negative); Urine Occult Blood Negative (Negative); Urine Urobilinogen Negative (Neg - 1+); Urine pH 6.5 (5.0-9.0)
[2024-09-14 21:58] LABS: Urine Red Blood Cell 0-2 /HPF (0-2); Urine White Cell 0-2 /HPF (0-5)
[2024-09-14 21:59] LABS: Urine Bacteria Few (Negative)
[2024-09-14 23:05] LABS: Urine Sodium 95 mmol/L (30-90)
[2024-09-14 23:30] VITALS: BP 151/65
[2024-09-15 00:15] LABS: Glucose - Point of Care 93 mg/dl (70-99)
[2024-09-15 02:48] LABS: Blood Urea Nitrogen 25 mg/dl (9-20); Calcium 9.1 mg/dl (8.4-10.2); Carbon Dioxide 22 mmol/L (22-30); Chloride 113 mmol/L (98-107); Estimated Creatinine Clearance 35 ml/min; Glucose 103 mg/dl (70-99); Sodium 141 mmol/L (135-145); eGFR 49.56
[2024-09-15 03:00] LABS: Troponin I < 0.012 ng/ml
[2024-09-15 03:21] VITALS: BP 150/71
[2024-09-15] MEDS: SYNTHROID 112 MCG PO (06:07)
[2024-09-15 06:21] LABS: Glucose - Point of Care 105 mg/dl (70-99)
[2024-09-15 07:00] VITALS: BP 132/58
[2024-09-15] MEDS: LEXISCAN 0.4 MG IV (09:13)
[2024-09-15] MEDS: AMINOPHYLLINE 75 MG IV (09:44)
[2024-09-15 09:53] LABS: Glycohemoglobin (HgbA1c) 7.1 % (4.0-5.6)
--- NOTE | 2024-09-15 10:48 | PTCARENOTE ---
Pt under Nuclear Med scanner, tolerated Lexiscan Stress test well. Lexiscan and Aminophylline given during procedure (per JUN). Report called to Will on , no change in status.
[2024-09-15 11:23] VITALS: BP 162/64
[2024-09-15] MEDS: COREG 12.5 MG PO ×2 (11:25→21:04)
[2024-09-15] MEDS: FARXIGA 10 MG PO (11:25)
[2024-09-15] MEDS: PROTONIX 40 MG PO (11:25)
[2024-09-15] MEDS: ASPIR LOW (ENTERIC COATED) 81 MG PO (11:25)
[2024-09-15] MEDS: HEPARIN 5000 UNITS SC ×2 (11:26→21:05)
[2024-09-15] MEDS: NORVASC 10 MG PO (11:26)
[2024-09-15] MEDS: FLOMAX 0.4 MG PO (11:26)
[2024-09-15] MEDS: BACTROBAN 2% OINTMENT 1 APPLIC TOPICAL ×2 (11:34→21:04)
[2024-09-15 11:40] LABS: Glucose - Point of Care 107 mg/dl (70-99)
--- NOTE | 2024-09-15 12:48 | W.PN.CD ---
Today's Communication / Plan
-
- Stress test this a.m. revealed possible mild ischemia in the inferior wall; medical management is recommended.
- Continue carvedilol 12.5 mg BID and amlodipine 10 mg daily (was increased 25 mg daily).
- Will add Imdur 30 mg daily.
- Ambulate patient today and feels well, can be discharged to home tomorrow.
Impression / Plan
-
84-year-old male (known to Dr. Lin, his primary [place] Manager) with coronary artery disease status-post CABG (2005), hypertension, hyperlipidemia, diabetes, and CKD presenting with 2 days of recurrent midsternal chest pain, consistent with angina.
CAD/CABG/Angina:
- Cardiac enzymes negative; EKG unremarkable.
- Echocardiogram yesterday revealed LVEF of 70-75%, mild mitral stenosis, and mild to moderate tricuspid regurgitation (estimated PAP 30-35 mmHg).
- Stress test this a.m. revealed possible mild ischemia in the inferior wall; medical management is recommended.
- Continue carvedilol 12.5 mg BID and amlodipine 10 mg daily (was increased 25 mg daily).
- Will add Imdur 30 mg daily.
- Continue aspirin and rosuvastatin.
- Ambulate patient today and feels well, can be discharged to home tomorrow.
DOMENIC on CKD:
-reports he has seen Dr. Nguyễn as OP
-most recent OP creatinine 1.2; 1.8 on admission, improved to 1.4 today.
HFpEF: chronic
-Remains stable, not volume overloaded.
DM2:
-management per primary team
HTN:
- Management as above.
Physical Exam
Vital Signs/Labs
Vital Signs
Temp Pulse Resp BP Pulse Ox
97.9 F 62 18 162/64 98
09/15/24 11:23 09/15/24 11:25 09/15/24 11:23 09/15/24 11:25 09/15/24 11:23
09/14/24 09/15/24 09/16/24
06:59 06:59 06:59
Actual Weight 81.675 kg
09/14/24 10:27
09/15/24 02:14
Magnesium 1.9 mg/dl (1.6-2.3) 09/14/24 10:27
LAB Results
09/14/24 09/14/24 09/14/24
10:27 19:53 22:00
Troponin I < 0.012 < 0.012 Cancelled
09/15/24
02:14
Troponin I < 0.012
Physical Exam
Constitutional: No acute distress and Comfortable
EENT: Anicteric
Cardiovascular: Rhythm & rate is regular, Pedal edema is absent, Systolic murmur present (soft 2/6) and S1S2 is normal
Respiratory: Respiratory effort normal and Lungs clear to auscul.
GI: Soft
Neuro/Psych: AO x 3
Other: Skin (warm, dry)
Data Reviewed
-
Date of Service: September 15, 2024
EKG: Report Reviewed by me (Sinus rhythm)
Echo: Tracing Personally Visualized and interpreted (LVEF 70-75%, mild MS, mild to moderate TR.)
Labs: Labs Reviewed by me
[2024-09-15] MEDS: IMDUR (EXTENDED RELEASE) 30 MG PO (13:18)
--- NOTE | 2024-09-15 14:12 | W.PN.HOSP.TC ---
Today's Communication/Plan
-
Diet
Medical mgmt of CP/CAD
Assessment / Plan
Assessment / Plan
84 y/o M with CAD s/p CABG p/w CP on exertion.
Exertional Chest pain - resolved
Trop (-) x3, EKG with no acute ischemia.
Stress test complete, med area of moderately decreased perusion partially reversivble in bassal to mid inf wall c/w infarction w/residual ischemia per cardiology Dr. Velasco. D/w KACIE.
Ok for diet, no cath planned
Medical mgmt as below - added Imdur.
CAD s/p CABG - chronic
Cont BB, amlodipine, asa/statin. Imdur added by cardiology as well.
ARB on hold as below
DOMENIC - improved
UA (-) LE/nit
Possibly med interaction of bactrim + olmesartan
both held on admission
Rec'd IVF
Cr down from 1.8--> 1.4. B/l Cr 1.3
Cont to monitor Cr off ARB
DM2 - fair control A1C 7.1%
metformin on hold while inpt, can resume at discharge
cont farxiga
BG controlled on basal/bolus insulin
Inguinal rash
pt took 6 days of 10 day course of bactrim prior to admission
discontinued due to DOMENIC
Pt reports resolution of rash - pt declined examination
BPH
cont flomax/finasteride
Hypothyroidism
cont levothyroxine
Likley discharge tomorrow 09/16/24
Anticipated Discharge: 24 - 48 hours
Subjective/Interval History
-
Date of Service: September 15, 2024
Feels well, no acute issues overnight. No active chest pain since admission.
Objective Data
-
Labs:
Laboratory Results
09/15/24
02:14
Sodium 141
Potassium 5.0
Chloride 113 H
Carbon Dioxide 22
BUN 25 H
Creatinine 1.4 H
Glucose 103 H
Calcium 9.1
Vital Signs:
Vital Signs
Temp Pulse Resp BP Pulse Ox
97.9 F 62 18 162/64 98
09/15/24 11:23 09/15/24 11:25 09/15/24 11:23 09/15/24 11:25 09/15/24 11:23
Review of Systems
-
History Source: Patient
All other systems: Reviewed and negative
Physical Exam
-
General: Well Developed, Well Nourished and No Apparent Distress
HEENT: Anicteric, PERRLA, Good Dentition and Neck Non Tender
Respiratory: Clear to Auscultation; Negative Wheezes, Rales or Rhonchi
Cardiac: Regular Rhythm and S1/S2; Negative Murmur
GI: Soft, Nontender, Nondistended and No Hepatosplenomegaly
Musculoskeletal: No Edema
Skin: Warm, Dry and Other (pt declined examination of inguinal area ); Negative Ulcers or Lesions
Neuro: AO x 3 and No Motor Deficits
Hematologic / Lymphatic: No Lymphadenopathy
Psych: Calm
Data Reviewed
-
Diagnostic Radiology: Image personally visualized and interpreted (CXR lungs clear) and Discussed with Patient
Medical Tests (Nuc Med, Echo etc): Discussed with Physician (D/w KACIE)
Labs: Labs Reviewed by me and Discussed with Patient (Trop(-) x3)
Old Records: Reviewed
[2024-09-15 16:58] LABS: Glucose - Point of Care 141 mg/dl (70-99)
[2024-09-15] MEDS: PROSCAR 5 MG PO (17:00)
[2024-09-15] MEDS: CRESTOR 20 MG PO (17:00)
--- NOTE | 2024-09-15 18:34 | PTCARENOTE ---
Pt ambulated in the [facility] 2 hours after getting Imdur. He reports that he didn't have any chest pain during activity.
[2024-09-15 19:31] VITALS: BP 123/49
[2024-09-15] MEDS: VITAMIN B-12 1000 MCG PO (21:05)
[2024-09-15 21:54] LABS: Glucose - Point of Care 135 mg/dl (70-99)
[2024-09-15 23:36] VITALS: BP 133/54
[2024-09-16 03:25] VITALS: BP 125/47
[2024-09-16] MEDS: SYNTHROID 112 MCG PO (06:11)
[2024-09-16 07:50] VITALS: BP 128/64
[2024-09-16 07:54] LABS: Glucose - Point of Care 129 mg/dl (70-99)
[2024-09-16] MEDS: IMDUR (EXTENDED RELEASE) 30 MG PO (07:57)
[2024-09-16] MEDS: FLOMAX 0.4 MG PO (07:57)
[2024-09-16] MEDS: FARXIGA 10 MG PO (07:57)
[2024-09-16] MEDS: PROTONIX 40 MG PO (07:57)
[2024-09-16] MEDS: ASPIR LOW (ENTERIC COATED) 81 MG PO (07:58)
[2024-09-16] MEDS: NORVASC 10 MG PO (07:58)
[2024-09-16] MEDS: HEPARIN 5000 UNITS SC (07:58)
[2024-09-16] MEDS: COREG 12.5 MG PO (07:59)
[2024-09-16] MEDS: BACTROBAN 2% OINTMENT 1 APPLIC TOPICAL (08:00)
[2024-09-16 08:13] LABS: % Basophils 0.6 % (0-2); % Eosinophils 2.4 % (0-6); % Immature Granulocytes 0.6 % (0-0.5); % Lymphocytes 18.8 % (20.5-51.1); % Monocytes 9.3 % (1.7-9.3); % Neutrophils 68.3 % (42.2-75.2); Absolute Eosinophils 0.1 10^3/uL (0-0.7); Absolute Lymphocytes 0.9 10^3/uL (1.2-3.4); Absolute Monocytes 0.5 10^3/uL (0.1-0.6); Absolute Neutrophils 3.4 10^3/uL (1.4-6.5); Hematocrit 35.8 % (39.0-52.0); Hemoglobin 11.5 g/dL (13.0-18.0); Mean Corp Hgb Conc. 32.1 g/dL (33.0-37.0); Mean Corpuscular Hgb 27.2 pg (27.0-31.0); Mean Corpuscular Volume 84.6 fL (80.0-94.0); Mean Platelet Volume 10.9 fL (7.4-10.4); Nucleated Red Blood Cells % 0 % (-); Platelet Count 147 10^3/uL (130-400); Red Blood Cell Count 4.23 10^6/uL (4.70-6.10); Red Cell Dist. Width 14.6 % (11.5-14.5)
[2024-09-16 08:59] LABS: Blood Urea Nitrogen 29 mg/dl (9-20); Carbon Dioxide 22 mmol/L (22-30); Chloride 108 mmol/L (98-107); Estimated Creatinine Clearance 35 ml/min; Glucose 115 mg/dl (70-99); Potassium 4.5 mmol/L (3.5-5.1); Sodium 138 mmol/L (135-145); eGFR 49.56
--- NOTE | 2024-09-16 09:37 | W.PN.CD ---
Today's Communication / Plan
-
- Stress test yesterday revealed possible mild ischemia in the inferior wall; medical management is recommended.
- Continue medical management with carvedilol 12.5 mg BID, amlodipine 10 mg daily (was increased from 5 mg daily), and Imdur 30 mg daily (which was started yesterday).
- The patient has had no anginal symptoms with ambulation; can be discharged to home today.
Impression / Plan
-
84-year-old male (known to Dr. Lin, his primary Dairy Worker) with coronary artery disease status-post CABG (2005), hypertension, hyperlipidemia, diabetes, and CKD presenting with 2 days of recurrent midsternal chest pain, consistent with angina.
CAD/CABG/Angina:
- Cardiac enzymes negative; EKG unremarkable.
- Echocardiogram yesterday revealed LVEF of 70-75%, mild mitral stenosis, and mild to moderate tricuspid regurgitation (estimated PAP 30-35 mmHg).
- Stress test yesterday revealed possible mild ischemia in the inferior wall; medical management is recommended.
- Continue medical management with carvedilol 12.5 mg BID, amlodipine 10 mg daily (was increased from 5 mg daily), and Imdur 30 mg daily (which was started yesterday).
- Continue aspirin and current dose of rosuvastatin.
- The patient has had no anginal symptoms with ambulation; can be discharged to home today.
DOMENIC on CKD:
-reports he has seen Dr. Nguyễn as OP
-most recent OP creatinine 1.2; 1.8 on admission, improved to 1.4.
HFpEF: chronic
- Compensated.
DM2:
-management per primary team
HTN:
- Improved.
- Continue current doses of carvedilol, amlodipine, and Imdur.
Physical Exam
Vital Signs/Labs
Vital Signs
Temp Pulse Resp BP Pulse Ox
98.3 F 65 16 128/54 96
09/16/24 07:50 06/06/25 07:58 09/16/24 07:50 09/16/24 07:58 09/16/24 07:50
09/15/24 09/16/24 09/17/24
06:59 06:59 06:59
Actual Weight 81.675 kg
09/16/24 06:34
09/16/24 06:34
Magnesium 1.9 mg/dl (1.6-2.3) 09/14/24 10:27
LAB Results
09/14/24 09/14/24 09/14/24
10: 19:53 22:00
Troponin I < 0.012 < 0.012 Cancelled
09/15/24
02:14
Troponin I < 0.012
Physical Exam
Constitutional: No acute distress and Comfortable
EENT: Anicteric
Cardiovascular: Rhythm & rate is regular, Pedal edema is absent, Systolic murmur absent and S1S2 is normal
Respiratory: Respiratory effort normal and Lungs clear to auscul.
GI: Soft
Neuro/Psych: AO x 3
Other: Skin (Warm, dry, intact)
Data Reviewed
-
Date of Service: September 16, 2024
EKG: Tracing Personally Visualized and interpreted (Telemetry: Sinus rhythm)
Medical Tests (PFT, Pathology etc): Image Personally Visualized and interpreted (Stress test 09/15/2024)
Labs: Labs Reviewed by me
--- NOTE | 2024-09-16 09:49 | W.DCSUMMARY ---
Discharge Summary
Discharge Data
Date of Admission: 09/14/24
Date of Discharge: 09/16/24
Total time spent discharging patient (in min): 36
-
Pending Results: No
Hospital Course
Discharging Physician : Dr. Tamica Cavanaugh
Disposition : Home
Principal Discharge diagnosis : Angina
Chronic Discharge diagnosis : CAD, DOMENIC on CKD, HFpEF, DM, HTN
Hospital Course : 84-year-old male with CAD, HTN, hypothyroidism, diabetes, presented to the hospital with chest pain and dyspnea. He had an unremarkable EKG with no evidence of ischemia and negative cardiac markers x 3. He had an elevated
creatinine of 1.8 which improved with fluid to 1.4. The elevation was felt to be secondary to his use of Bactrim in the setting of an ARB. He was seen by cardiology who performed a nuclear stress test and it revealed a med area of moderately
decreased perfusion partially reversible in basal to mid inf wall c/w infarction w/residual ischemia. He had no more chest pain. He was started on Imdur in addition to his other medications when he was discharged home in stable condition with
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
Important imaging findings :
Chest x-ray considered compatible with emphysema
Procedure findings :
Stress test results as above
Discharge Plan
-
Patient Disposition: Home (Routine Discharge)
Discharge Diagnosis/Procedures: Angina
Condition: Fair
Diet: Regular
Activity: No restrictions
Instructions: Isosorbide Mononitrate
Referrals:
Isabel Dove CRNP [Specified Professional Personl, Cardiology] - 10/17/24 10:40 am
Dante Hoover CRNP [Family Provider, Internal Medicine]
Prescriptions:
New
isosorbide mononitrate 30 mg Tablet Extended Release 24 Hr
30 mg PO DAILY Qty: 30 0RF
Continued
levothyroxine 112 MCG tablet
112 mcg PO DAILY
carvedilol 12.5 MG tablet
12.5 mg PO BID
omeprazole 40 MG capsule,delayed release(DR/EC)
40 mg PO Daily
rosuvastatin 20 MG tablet
20 mg PO QPM
olmesartan [Benicar] 40 MG tablet
40 mg PO QPM
cyanocobalamin (vitamin B-12) 1,000 MCG tablet
1,000 mcg PO HS
acetaminophen 500 MG tablet
500 mg PO Q6HPRN PRN (Reason: mild pain)
amlodipine 5 mg Tablet
5 mg PO DAILY
tamsulosin 0.4 mg Capsule
0.4 mg PO DAILY
finasteride 5 mg Tablet
5 mg PO QPM
aspirin 81 mg Tablet,Delayed Release (Dr/Ec)
81 mg PO DAILY
mupirocin 2 % Ointment
1 applic TOPICAL BID
dapagliflozin propanediol [Farxiga] 10 mg Tablet
10 mg PO DAILY
metformin 500 MG tablet
500 mg PO DAILY
Discontinued
sulfamethoxazole-trimethoprim [Bactrim DS] 800-160 mg Tablet
1 tab PO BID
Rx Instructions:
for 10 days starting 09/09/24
Discharge Orders:
Discharge Patient (As Directed); Ordered 09/16/24
Ordered By: Tamica Cavanaugh
Discharge Date and Time
Discharge Date/Time: 09/16/24 10:36
Print Language: SLOVAK
== END 2024-09-16 10:36 | disposition home or self-care (01) | DRG 303 ==
LOC: 4 WEST ACU 14:28
PROVIDERS: Nurse Practitioner; ADMITTING PHYSICIAN Internal Medicine; ATTENDING PHYSICIAN Internal Medicine; CONSULT PHYSICIAN Internal Medicine; EMERGENCY PHYSICIAN Emergency Medicine; FAMILY PHYSICIAN Registered Nurse
PROC: 3E033HZ Introduction of Radioactive Substance into Peripheral Vein, Percutaneous Approach (ICD-10-PCS; 2024-09-15)
PROC: 4A12XM4 Monitoring of Cardiac Stress, External Approach (ICD-10-PCS; 2024-09-15)
DX: I25.110 Atherosclerotic heart disease of native coronary artery with unstable angina pectoris (principal); N17.9 Acute kidney failure, unspecified; I13.0 Hypertensive heart and chronic kidney disease with heart failure and stage 1 through stage 4 chronic kidney disease, or unspecified chronic kidney disease; I50.32 Chronic diastolic (congestive) heart failure; E11.22 Type 2 diabetes mellitus with diabetic chronic kidney disease; Z95.1 Presence of aortocoronary bypass graft; Z79.890 Hormone replacement therapy; Z79.84 Long term (current) use of oral hypoglycemic drugs; I25.2 Old myocardial infarction; N40.0 Benign prostatic hyperplasia without lower urinary tract symptoms; Z87.891 Personal history of nicotine dependence; Z88.0 Allergy status to penicillin; Z79.82 Long term (current) use of aspirin; Z79.899 Other long term (current) drug therapy; E03.9 Hypothyroidism, unspecified; E78.00 Pure hypercholesterolemia, unspecified; I49.3 Ventricular premature depolarization; J44.89 Other specified chronic obstructive pulmonary disease; N18.31 Chronic kidney disease, stage 3a
CPT/HCPCS: 71046; 78452; 80048; 80053; 81003; 81015; 82962; 83036; 83735; 84300; 84484; 85025; 93005; 93017; 93306; 96360; 99285; A9500; J2785

== ENCOUNTER 2024-09-26 16:08 | Inpatient (IN) | payer MEDICARE, BC, SELFPAY ==
[2024-09-26] VITALS (7 sets, daily range): BP systolic 114–160; BP diastolic 49–68; BMI 28.5
[2024-09-26 14:33] LABS: % Basophils 0.4 % (0-2); % Eosinophils 1.4 % (0-6); % Immature Granulocytes 0.6 % (0-0.5); % Lymphocytes 9.7 % (20.5-51.1); % Monocytes 8.3 % (1.7-9.3); % Neutrophils 79.6 % (42.2-75.2); Absolute Eosinophils 0.1 10^3/uL (0-0.7); Absolute Lymphocytes 0.5 10^3/uL (1.2-3.4); Absolute Monocytes 0.4 10^3/uL (0.1-0.6); Hemoglobin 9.3 g/dL (13.0-18.0); Mean Corp Hgb Conc. 33.2 g/dL (33.0-37.0); Mean Corpuscular Hgb 27.4 pg (27.0-31.0); Mean Corpuscular Volume 82.6 fL (80.0-94.0); Mean Platelet Volume 10.8 fL (7.4-10.4); Nucleated Red Blood Cells % 0 % (-); Platelet Count 198 10^3/uL (130-400); Red Blood Cell Count 3.39 10^6/uL (4.70-6.10); Red Cell Dist. Width 15.1 % (11.5-14.5); White Blood Cell Count 5.1 10^3/uL (4.8-10.8)
--- NOTE | 2024-09-26 14:50 | ED.GENMED ---
History of Present Illness
General
Chief Complaint: Abnormal Lab Value
Source: patient
Exam Limitations: none
Time Seen by Provider: 09/26/24 14:49
Nursing documentation reviewed up to this point in time: agreed with
History of Present Illness
History of Present Illness:
84-year-old male with history of tremors, CHF, CAD, HTN, HLD, CKD 3, BPH, NIDDM, diverticulitis, cardiac bypass hypothyroidism, chronic anemia, mild cognitive impairment, presents from PCP office for chills, fatigue, worsening kidney function. Was
on Bactrim for scrotal rash for 5, finished 4 days ago, with improvement of rash but worsening of kidney function.
Test from PCP: Patient was taking bactrim, and had a minor AL 09/16 admission. He did not understand discharge instructions and restarted bactrim 09/19 until 09/23. Stopped it Thursday but renal function continued to worsen to today.
Past History
Past History
ED Past Medical History: CAD, COPD, HTN, Hypercholesterolemia, NIDDM, Hypothyroidism and Other
ED Past Surgical History: Cardiac and Other
Social History
Tobacco: Former smoker (Quit 35 years ago)
Alcohol: None
Personal:
Living: with family
Employment: Retired
Family History
Family History: Other (Noncontributory)
Review of Systems
Review of Systems
Allergies reviewed?: Yes
All Other Systems: ROS reviewed and negative except as documented in HPI and ROS
Constitutional: Reports fatigue; Denies fever
Respiratory: Denies trouble breathing
Cardiac: Denies chest pain
ABD/GI: Denies abdominal pain, nausea, vomiting, diarrhea, bloody stools, black stools or anorexia
: Denies dysuria or difficulty voiding
Musculoskeletal: Reports no symptoms
Skin: Reports no symptoms
Neurological: Reports no symptoms
Phy Exam
Physical Exam
Physical Exam:
GENERAL: No acute distress. A&Ox3.
CONSTITUTIONAL: Afebrile.
EYES: clear, conjunctivae normal
ENMT: moist mucus membranes, Pharynx nl
RESPIRATORY: Regular respirations, nonlabored, lungs clear.
CARDIOVASCULAR: Regular rate and rhythm, no murmurs, no rubs.
GI: Soft, nontender, normal BS
MUSCULOSKELETAL: Moves with ease. Well perfused. Trace bilateral ankle edema
SKIN: Warm, dry, pink
PSYCH: Normal mood and affect. Well kept, interactive and appropriate
NEUROLOGIC: Awake, alert and oriented. No focal neurological deficits
Course
Orders/Labs/Results
Orders:
Orders
09/26/24 14:06
EKG [Electrocardiogram (*1)] Urgent
Reason for Study: Other
Other Reason for Exam: abnormal labs
EKG- Treatment ONCE
09/26/24 14:14
BNP [NT-proBNP] Urgent
Complete Blood Count/With Diff Urgent
Comprehensive Metabolic Panel Urgent
09/26/24 Dinner
Cholesterol Lowering
At Your Request: Limited, Project Eng Required
Does patient need a safe tray?: No
Cholesterol Lowering: Sodium, 2 Gram
09/26/24 15:14
NEPHROLOGY CONSULT Urgent
Consulting Provider: Jaclyn Caldera
Was physician already notified: Yes
Reason for consult: acute on chronic renal failure
09/26/24 15:51
Admit/Transfer Patient As Directed
Co-Sign Provider:
Level of Care: Inpatient admission
Assign to:: Telemetry
Physician / Group: jorge luis
Diagnosis: DOMENIC
Reason for Telemetry: Arrhythmia
Date to Stop Telemetry: 09/29/24
Time to Stop Telemetry: 11:00
Reason for Hospitalization: DOMENIC
Expected length of stay greater than two midnights?: Yes
ELOS- Estimated Length of Stay in days: 2
I certify the patient meets the requirements for IP care: Yes
Code Status As Directed
Resuscitation Status: Full Code
PRN Pain Medication Management As Directed
May give lesser potent ordered pain med per pt: Yes
preference::
Protocol:: Medication orders for pain may be administered in a
manner that supports deferring to patient preference
when the pt is:
- Requesting an ordered lesser potent pain medication.
Least to most potent pain medications are defined
as: acetaminophen < NSAID < tramadol < opioids
(morphine, oxycodone, hydromorphone).
- Requesting a lesser dose of the same medication IF
ORDERED.
- Requesting a less intrusive route of administration
if both routes are prescribed by the provider (PO <
IV).
09/26/24 18:05
Dextrose 50%-Water [Dextrose 50% Syringe] 12.5 grams IV [id number] PRN
Glucagon [GlucaGen] 1 mg IM PRN PRN
Insulin Aspart Corrective Low [Novolog Flexpen-Low Resistance] See Protocol SC AC
Sodium Zirconium Cyclosilicate [Lokelma] 10 gram PO NOW STA
09/26/24 18:05
Activity As Directed
Activity Level: As Tolerated
Bedside Glucose Monitoring As Directed
Frequency: AC&HS
Additional Instructions:: Change to q6h if pt on TPN, tube feeding or not eating
Vital Signs As Directed
Frequency: Per unit guidelines
DX Deep Vein Thrombosis Video Routine
09/26/24 20:00
Heparin 5,000 units SC Q12
09/27/24 06:00
Complete Blood Count/With Diff IN AM
Comprehensive Metabolic Panel IN AM
Glycohemoglobin (HgbA1c) IN AM
09/29/24 11:00
DC Protocol for Telemetry ONCE
Abnormal Lab Results
09/26/24
14:14
RBC 3.39 L 10^6/uL
(4.70-6.10)
Hgb 9.3 L g/dL
(13.0-18.0)
Hct 28.0 L %
(39.0-52.0)
RDW 15.1 H %
(11.5-14.5)
MPV 10.8 H fL
(7.4-10.4)
Absolute Lymphs (auto) 0.5 L 10^3/uL
(1.2-3.4)
Immature Gran % 0.6 H %
(0-0.5)
Neutrophils % 79.6 H %
(42.2-75.2)
Lymphocytes % 9.7 L %
(20.5-51.1)
Potassium 5.7 H mmol/L
(3.5-5.1)
Chloride 111 H mmol/L
(98-107)
Carbon Dioxide 17 L mmol/L
(22-30)
BUN 63 H mg/dl
(9-20)
Creatinine 2.8 H mg/dL
(0.7-1.3)
Glucose 161 H mg/dl
(70-99)
Alkaline Phosphatase 128 H U/L
(38-126)
Total Protein 5.7 L g/dl
(6.3-8.2)
Albumin 3.2 L g/dl
(3.5-5.0)
09/26/24 14:14
09/26/24 14:14
Vital Signs
Initial and Last Documented VS:
Initial Vital Signs
Temp Pulse Resp BP Pulse Ox
98.0 F 66 18 123/49 96
09/26/24 13:58 09/26/24 13:58 09/26/24 13:58 09/26/24 13:58 09/26/24 13:58
Last Documented Vital Signs
Temp Pulse Resp BP Pulse Ox
98 F 76 20 150/68 98
09/26/24 17:56 09/26/24 17:56 09/26/24 17:56 09/26/24 17:56 09/26/24 17:56
MDM/Problems Addressed
Differential Diagnosis Includes:
renal failure, medication induced?
MDM/Problems Addressed:
84-year-old male with history of tremors, CHF, CAD, HTN, HLD, CKD 3, BPH, NIDDM, diverticulitis, cardiac bypass hypothyroidism, chronic anemia, mild cognitive impairment, presents from PCP office for chills, fatigue, worsening kidney function. Was
on Bactrim for scrotal rash for 5, finished 4 days ago, with improvement of rash but worsening of kidney function.
Test from PCP: Patient was taking Bactrim, and had a minor AL 09/16 admission. He did not understand discharge instructions and restarted bactrim 09/19 until 09/23. Stopped it Thursday but renal function continued to worsen to today.
EKG: Sinus rhythm with PVCs, heart rate 69
2:00 PM:
CBC: Hemoglobin 9.3 down from 11.5 on 09/16
CMP: BUN/creat 63/2.8 P:, GFR 21.57 kidney functions worsening since 09/16 admission. K+ 5.[address] Caldera [facility]ph[facility] notified of admission.
*EKG
EKG Intrepretation Date: 09/26/24
Interpretation: normal (With occasional PVC)
Heart Rate: 69
Rate: normal
Rhythm: sinus and PVC's
Larimer: normal axis
Interval: normal interval
QRS Pattern: normal QRS
Ischemia: no ischemia
*Critical Care Note
Total Time (30-74mins, 75-104mins- exclusive of procedures): Not Applicable
ED Attending Note
-
Portions of this chart may have been created with voice recognition software.� Occasional wrong word or��sound alike� substitutions may have occurred due to the inherent limitations of voice recognition software.
Discharge Plan
Departure
Patient Disposition: Admit
Date of Disposition: 09/26/24
Time of Disposition: 15:15
Admit to: Med/Surg
Presentation/result/management discussed w/ accepting MD/DO: Hospitalist
Condition: Fair
Discharge Problem:
Acute on chronic renal failure
Interventions
Interventions:
*Risk Screen - Suicide Last Done: 09/26/24 13:58
*General Assessment Last Done: 09/26/24 13:58
*Neglect/Abuse Screening Last Done: 09/26/24 13:58
*ED- Fall Risk Assessment Last Done: 09/26/24 15:24
*ED COVID-19 Vaccine History Last Done: 09/26/24 15:24
*Nursing Disposition Last Done: 09/26/24 18:05
Discharge Date and Time
Discharge Date/Time: 09/26/24 18:05
[2024-09-26 14:59] LABS: NT-proBNP 3350 pg/ml
[2024-09-26 15:06] LABS: ALT (SGPT) 32 U/L (0-50); AST (SGOT) 28 U/L (17-59); Albumin 3.2 g/dl (3.5-5.0); Alkaline Phosphatase 128 U/L (38-126); Blood Urea Nitrogen 63 mg/dl (9-20); Carbon Dioxide 17 mmol/L (22-30); Chloride 111 mmol/L (98-107); Glucose 161 mg/dl (70-99); Potassium 5.7 mmol/L (3.5-5.1); Sodium 137 mmol/L (135-145); Total Bilirubin 0.5 mg/dl (0.2-1.3); Total Protein 5.7 g/dl (6.3-8.2); eGFR 21.57
--- NOTE | 2024-09-26 15:51 | W.CON.NEPH ---
Consultation
-
Date/Time Consultation Requested: 09/26/24 1514
Date/Time Consultation Performed: 09/26/24 1615
Requesting Provider: Kim Carson
Performing Provider: Jaclyn Mai
Reason for Consultation: DOMENIC, hyperkalemia
Medical History
-
Chief Complaint: DOMENIC
History of Present Illness:
84 years old male with prior history of coronary artery disease, CABG 2005, CKD stage 3a basleine cr 1.[address] Caldera [facility] with out diuretics, DM on metformin and Farxiga, HTN on ARB, coreg, Amlodipine, BPH maintains on flomax and Finasteride
who noted to have who presents to the hospital with abnormal labs, DOMENIC cr 2.8, k 5.5. He was d/c on 09/16 from for CP, stress test noted partially reversible ischemia and started on Imdur with out pt card f/u. Required no cardiac intervention. He
also had DOMENIC cr peak at 1.8 felt from Bactrim use. Cr improved to 1.4 at d/c. Follow labs with PCP show cr of 2 and reportedly pt was still taking BActrim as of 09/23. Since PCP visit he stopped taking bactrim, and repeat labs done this am and cr
still increasing trend 2.8 hence refer to ER. He offers chr dizziness and no change, no CP or sob. No n/v or abd pian. no Dysuria. Chr LE edema wears TEDs.
Reports his inguinal rash is recolving.
Past Medical History
CAD, HTN, Hypothyroidism , CKD, proteinuria, NIDDM, h/o PE, HLD, INDIA, OA, Gout, Anemia, Emphysema, DCHF
Past Surgical History: Other (CABG 2004, L TKR, inguinal hernia repair, nasal septum repeair from tooht implant malfuction, left thoacotomy and pleurectomy for pleural effusion)
Social History
Tobacco: Former Smoker
Alcohol: None
Drug: None
Employment: Retired
Family History
no CKD
Family History: Not Pertinent
Allergies / Home Medications
Allergy/AdvReac Type Severity Reaction Status Date / Time
Penicillins Allergy Mild Itching Verified 09/26/24 14:05
�Medication �Instructions �Recorded �Confirmed �Type
levothyroxine 112 mcg tablet 112 mcg PO DAILY Thyroid 11/17/17 09/14/24 History
carvedilol 12.5 mg tablet 12.5 mg PO BID Blood Pressure 03/31/19 09/14/24 History
omeprazole 40 mg capsule,delayed 40 mg PO Daily Gastrointestinal 03/31/19 09/14/24 History
release Issue
rosuvastatin 20 mg tablet 20 mg PO QPM High Cholesterol 03/31/19 09/14/24 History
olmesartan 40 mg tablet (Benicar) 40 mg PO QPM Blood Pressure 11/29/19 09/14/24 History
acetaminophen 500 mg tablet 500 mg PO Q6HPRN PRN mild pain 02/08/20 09/14/24 History
cyanocobalamin (vitamin B-12) 1,000 mcg PO HS Supplement 02/08/20 09/14/24 History
1,000 mcg tablet
amlodipine 5 mg tablet 5 mg PO DAILY Blood Pressure 10/14/23 09/14/24 History
finasteride 5 mg tablet 5 mg PO QPM BPH 10/14/23 09/14/24 History
tamsulosin 0.4 mg capsule 0.4 mg PO DAILY Urinary Issue 10/14/23 09/14/24 History
aspirin 81 mg tablet,delayed 81 mg PO DAILY Heart 09/14/24 09/14/24 History
release Disease/Condition
dapagliflozin propanediol 10 mg 10 mg PO DAILY Diabetes 09/14/24 09/14/24 History
tablet (Farxiga)
metformin 500 mg tablet 500 mg PO DAILY Diabetes 09/14/24 09/14/24 History
mupirocin 2 % topical ointment 1 applic topical BID groin 09/14/24 09/14/24 History
isosorbide mononitrate 30 mg 30 mg PO DAILY #30 tabs 09/16/24 Rx
tablet,extended release 24 hr
Review of Systems
-
All other systems: Negative unless noted
Physical Exam
Vital Signs
Vital Signs
Temp Pulse Resp BP Pulse Ox
98.0 F 66 18 123/49 95
09/26/24 13:58 09/26/24 13:58 09/26/24 13:58 09/26/24 13:58 09/26/24 15:27
Lab Results
WBC 5.1 10^3/uL (4.8-10.8) 09/26/24 14:14
RBC 3.39 10^6/uL (4.70-6.10) L 09/26/24 14:14
Hgb 9.3 g/dL (13.0-18.0) L 09/26/24 14:14
Hct 28.0 % (39.0-52.0) L 09/26/24 14:14
Plt Count 198 10^3/uL (130-400) 09/26/24 14:14
Sodium 137 mmol/L (135-145) 09/26/24 14:14
Potassium 5.7 mmol/L (3.5-5.1) H 09/26/24 14:14
Chloride 111 mmol/L (98-107) H 09/26/24 14:14
Carbon Dioxide 17 mmol/L (22-30) L 09/26/24 14:14
BUN 63 mg/dl (9-20) H 09/26/24 14:14
Creatinine 2.8 mg/dL (0.7-1.3) H 09/26/24 14:14
eGFR 21.57 09/26/24 14:14
Glucose 161 mg/dl (70-99) H 09/26/24 14:14
Calcium 9.0 mg/dl (8.4-10.2) 09/26/24 14:14
Gmp-T-Yeavkbjimff Pept 3350 pg/ml 09/26/24 14:14
Albumin 3.2 g/dl (3.5-5.0) L 09/26/24 14:14
Physical Exam
General: Awake, Alert, Oriented, AOx3, No Distress and Nontoxic
HEENT: EOMI, Anicteric, Conjunctivae Clear, Neck Supple and No JVD
Respiratory: Clear, Normal Excursion and Nonlabored Respirations
Cardiac: S1/S2 and Regular Rate/Rhythm
Breast: Deferred by me
Abdomen: Soft, Nontender and Nondistended
Musculoskeletal: No Edema (trace edema-chronic)
Neuro: Nonfocal/Grossly Intact
Psych: Mood/afflect pleasant, Insight/judgement good and Appropriate
Assessment/Plan
-
IMP:
DOMENIC with CKD [id number] cr 1.2, follows Dr Caldera
HYperkalemia
Met acidosis-non gap
Anemia
CAD s/p CABG - chronic
DM2 - A1C 7.1%
BPH
Hypothyroidism
DCHF
GERD
OA
Plan;
A/w abnormal labs from recent d/c
DOMENIC-suspect again from Bactrim and ARB use
cont to hold both, start IVF and monitor
check U eosinophil and follow bladder scan
non gap met acidosis-IVF bicarb
Lokelma course for hyperkalemia and low k diet
Avoid nephrotoxins and hold ARB and Farxiga
BP stable
follow h/h, check iron panel
labs in am
d/w pt and primary
--- NOTE | 2024-09-26 15:54 | HPS.HSE ---
Addendum entered and electronically signed by Alejandro Thomas MD 09/26/24 16:28:
Bladder scan protocol and Bicarb drip as per nephro.
Original Note:
Family Physician
-
Family Physician: NOT KNOW UNKNOWN - PT DOES
Chief Complaint
-
DOMENIC
History of Present Illness
84-year-old male past medical history of CAD status post CABG, HFpEF, hypertension, hypothyroidism, diabetes, CKD, chronic anemia, mild cognitive impairment, hyperlipidemia, BPH, diverticulitis, presenting with chills, fatigue and worsening kidney
function. He was on Bactrim for scrotal rash for 5 days which he finished 4 days ago. Rash is improved but kidney function is worsened.
Patient was recently admitted from 09/14 to 09/16 for chest pain and dyspnea. No evidence of ischemia. He was seen by cardiology and had nuclear stress test showing moderate area of decreased perfusion consistent with residual ischemia. Started on
Imdur. He had DOMENIC attributed to Bactrim which was stopped.
He states that he mistakenly started Bactrim for a few days after this admission but stopped it.
He complains of ongoing shortness of breath and occasional dizziness. No chest pain. He complains of headaches for which he is taking Tylenol. He has been eating and drinking less in the past week. His urine output is a little bit less.
Medical History
Past Medical History
Past Medical History: Reports Other (CAD status post CABG, HFpEF, hypertension, hypothyroidism, diabetes, CKD, chronic anemia, mild cognitive impairment, hyperlipidemia, BPH, diverticulitis,)
Past Surgical History: Reports None
Social History
Tobacco: Non-smoker
Alcohol: None
Drug: None
Family History
Family History: Not pertinent
Allergies / Home Medications
Allergies reflects when Allergies were last updated in [employer]
Home Medications with original date entered in [employer])
Allergy/Medication List:
Allergies
Allergy/AdvReac Type Severity Reaction Status Date / Time
Penicillins Allergy Mild Itching Verified 09/26/24 14:05
Home Medications
levothyroxine 112 mcg tablet 112 mcg PO DAILY Thyroid 11/17/17
carvedilol 12.5 mg tablet 12.5 mg PO BID Blood Pressure 03/31/19
omeprazole 40 mg capsule,delayed release 40 mg PO Daily Gastrointestinal Issue 03/31/19
rosuvastatin 20 mg tablet 20 mg PO QPM High Cholesterol 03/31/19
olmesartan 40 mg tablet (Benicar) 40 mg PO QPM Blood Pressure 11/29/19
acetaminophen 500 mg tablet 500 mg PO Q6HPRN PRN mild pain 02/08/20
cyanocobalamin (vitamin B-12) 1,000 mcg tablet 1,000 mcg PO HS Supplement 02/08/20
amlodipine 5 mg tablet 5 mg PO DAILY Blood Pressure 10/14/23
finasteride 5 mg tablet 5 mg PO QPM BPH 10/14/23
tamsulosin 0.4 mg capsule 0.4 mg PO DAILY Urinary Issue 10/14/23
aspirin 81 mg tablet,delayed release 81 mg PO DAILY Heart Disease/Condition 09/14/24
dapagliflozin propanediol 10 mg tablet (Farxiga) 10 mg PO DAILY Diabetes 09/14/24
metformin 500 mg tablet 500 mg PO DAILY Diabetes 09/14/24
mupirocin 2 % topical ointment 1 applic topical BID groin 09/14/24
isosorbide mononitrate 30 mg tablet,extended release 24 hr 30 mg PO DAILY #30 tabs 09/16/24
Review of Systems
-
History Source: Patient
A 12 point ROS was completed and negative except as noted: Yes
Constitutional: Reports No Symptoms
EENT: Reports No Symptoms
Respiratory: Reports See HPI
Cardiac: Reports See HPI
Abdomen/GI: Reports No Symptoms
: Reports No Symptoms
Musculoskeletal: Reports No Symptoms
Skin: Reports No Symptoms
Neurological: Reports No Symptoms
Endocrine: Reports No Symptoms
Hematologic/Lymphatic: Reports No Symptoms
Psych: Reports No Symptoms
Physical Exam
Vital Signs
Vital Signs
Temp Pulse Resp BP Pulse Ox
98.0 F 66 18 123/49 95
09/26/24 13:58 09/26/24 13:58 09/26/24 13:58 09/26/24 13:58 09/26/24 15:27
Physical Exam
General: Well Developed, Well Nourished and No Apparent Distress
HEENT: NormoCephalic, Moist mucous membranes and Atraumatic
Respiratory: Clear
Cardiac: S1/S2 and Regular Rhythm; No Murmur or Rub
GI: Soft, Non Tender, Non Distended and Normal Bowel Sounds; No Organomegaly
Rectal: Deferred by Provider
Musculoskeletal: No Clubbing, No Cyanosis and No Edema
Skin: No Rash
Neuro: Nonfocal/grossly intact
Laboratory Results
-
09/26/24 14:14
09/26/24 14:14
Laboratory Results
Total Bilirubin 0.5 mg/dl (0.2-1.3) 09/26/24 14:14
AST 28 U/L (17-59) 09/26/24 14:14
ALT 32 U/L (0-50) 09/26/24 14:14
Alkaline Phosphatase 128 U/L (38-126) H 09/26/24 14:14
Data Reviewed
-
Lab Data: Labs Reviewed by me
Old Records: Reviewed
Impression/Plan
-
IMPRESSION:
PLAN:
# DOMENIC on CKD 3 unclear etiology possibly secondary to Bactrim
# Hyperkalemia
- Creatinine of 2.8 from 1.4
-EKG sinus rythmn with PVCs
- Hold dapagliflozin, olmesartan
-Give Lokelma
- Nephrology consulted
CAD status post CABG
-Patient with ongoing dyspnea and dizziness worked up with recent stress test showing residual ischemia
- Continue aspirin, statin
- Continue isosorbide mononitrate
Chronic HFpEF
- Continue Coreg
Essential hypertension
- Continue amlodipine
Hypothyroidism
- Continue levothyroxine
Type 2 diabetes
- Hold metformin
- Insulin sliding scale
Chronic anemia
- Hemoglobin 9.3 from 11.5
Mild cognitive impairment
Hyperlipidemia
BPH
- Continue finasteride, tamsulosin
History of diverticulitis
Full code
DVT prophylaxis�heparin
Cardiac diet
[2024-09-26] MEDS: SODIUM BICARBONATE 1150 MEQ IV (17:03)
[2024-09-26 18:23] LABS: Glucose - Point of Care 111 mg/dl (70-99)
[2024-09-26] MEDS: LOKELMA 10 GRAM PO (18:29)
[2024-09-26] MEDS: TYLENOL 500 MG PO (19:18)
[2024-09-26] MEDS: COREG 12.5 MG PO (20:28)
[2024-09-26] MEDS: HEPARIN 5000 UNITS SC (20:28)
[2024-09-26] MEDS: VITAMIN B-12 1000 MCG PO (20:53)
[2024-09-26] MEDS: FIORICET 1 TAB PO (20:53)
[2024-09-26 21:19] LABS: Glucose - Point of Care 121 mg/dl (70-99)
[2024-09-27 02:25] VITALS: BP 154/70
--- NOTE | 2024-09-27 02:52 | PTCARENOTE ---
Patient complained of chest pain rated a 4/10, that did not radiate anywhere at around 0230. EKG was obtained. Temperature was 98.3 degrees F, HR was 89, blood pressure was 154/701, and pulse ox was 93% on RA. Patient states that his pain went down
to a 2/10. train caller NOVELTY PRINTING MACHINE OPERATOR made aware, order placed for stat Troponin. Order carried out. Patient placed on 2L of oxygen per NOVELTY PRINTING MACHINE OPERATOR. Call crawford within reach.
[2024-09-27 03:25] LABS: Troponin I < 0.012 ng/ml
[2024-09-27] MEDS: SYNTHROID 112 MCG PO (05:13)
[2024-09-27] MEDS: SODIUM BICARBONATE 1150 MEQ IV ×2 (05:15→16:12)
[2024-09-27 06:03] LABS: % Basophils 0.5 % (0-2); % Eosinophils 1.8 % (0-6); % Immature Granulocytes 0.2 % (0-0.5); % Lymphocytes 14.6 % (20.5-51.1); % Monocytes 10.3 % (1.7-9.3); % Neutrophils 72.6 % (42.2-75.2); Absolute Eosinophils 0.1 10^3/uL (0-0.7); Absolute Lymphocytes 0.6 10^3/uL (1.2-3.4); Absolute Monocytes 0.5 10^3/uL (0.1-0.6); Absolute Neutrophils 3.2 10^3/uL (1.4-6.5); Hematocrit 27.6 % (39.0-52.0); Hemoglobin 9.4 g/dL (13.0-18.0); Mean Corp Hgb Conc. 34.1 g/dL (33.0-37.0); Mean Corpuscular Hgb 27.8 pg (27.0-31.0); Mean Corpuscular Volume 81.7 fL (80.0-94.0); Mean Platelet Volume 10.4 fL (7.4-10.4); Nucleated Red Blood Cells % 0 % (-); Platelet Count 211 10^3/uL (130-400); Red Blood Cell Count 3.38 10^6/uL (4.70-6.10); Red Cell Dist. Width 14.7 % (11.5-14.5); White Blood Cell Count 4.4 10^3/uL (4.8-10.8)
--- NOTE | 2024-09-27 06:12 | W.PN.UPDATE ---
Update Note
Progress Note Update
~ 0230 pt with complained of 4-5/10 CP that is resolved on its own. EKG read NSR with ST and T wave abnormality. ST depression in V4 and V5 that is not noted on previous EKG. VS: 157/70 HR 89 RESP 18 Temp 98.3 SPO2- 93% RA.� Trop ordered and oxygen
applied pt was admitted earlier in the month and has noted ischemia that they have been managing medically- d/t CKD.�trop- negative
~Again, at 0600 pt called and stated that he was having 6/10 cp that radiated to his neck resolving without interventions within 10 mins- VS 145/66 HR 84 Temp 99.5 SPO2- 97%- EKG: NORMAL SINUS RHYTHM NONSPECIFIC ST AND T WAVE ABNORMALITY. Cards
consulted- cont. to trend 2x more times.
[2024-09-27 06:22] LABS: Albumin 3.1 g/dl (3.5-5.0)
[2024-09-27 06:32] LABS: ALT (SGPT) 29 U/L (0-50); AST (SGOT) 24 U/L (17-59); Alkaline Phosphatase 127 U/L (38-126); Blood Urea Nitrogen 45 mg/dl (9-20); Calcium 9.2 mg/dl (8.4-10.2); Carbon Dioxide 23 mmol/L (22-30); Chloride 108 mmol/L (98-107); Estimated Creatinine Clearance 28 ml/min; Glucose 104 mg/dl (70-99); Sodium 140 mmol/L (135-145); Total Bilirubin 0.7 mg/dl (0.2-1.3); Total Protein 5.6 g/dl (6.3-8.2); eGFR 36.66
[2024-09-27 07:00] VITALS: BP 146/68
[2024-09-27 07:39] LABS: Glucose - Point of Care 111 mg/dl (70-99)
--- NOTE | 2024-09-27 08:00 | CON.CAR ---
Addendum entered and electronically signed by Marlon Fountain MD 09/27/24 12:19:
I saw and examined the patient.
The BEHAVIORAL ANALYST's note was reviewed and I agree with the note.
Comment: 84-year-old male (known to Dr. Lin, his primary education manager), with coronary artery disease (CABG 2005) HFpEF, mild/moderate tricuspid regurgitation, PE (1 year of apixaban), CKD stage III, hypertension, GERD, INDIA, and chronic anemia here
with fatigue and DOMENIC. This is resolving but then had 2 episodes of cp. Initially had ECG changes with ns ST depressions. He is currently pain free. rrr no m/r/g. lung cta. Labs trop 0.03 ecg/
Chest pain recent abnomal stress with decision to manange medically given no easy targets, last year SVG -OM1 seemed to be a target, but ischemia was inferior on stress. Will start hep gtt and increase IMDUR, last eval trops were normal
but did have DOMENIC. Not clear yet as to whether cath will offer benefit over medical therapy. He is also not certain he wants a cath. Will monitor over next 24 hours and consider best next step as clinical course unfolds. Significant
DOMENIC a consideration.
Original Note:
Consultation
Consultation Request
Date/Time Consultation Requested: 09/27/2024 06:00
Date/Time Consultation Performed: 09/27/2024 08:00
Requesting Provider: YOLANDA Berman
Performing Provider: YOLANDA Deutsch for Dr. Fountain
Reason for Consultation: Chest pain
Medical History
-
Chief Complaint: Fever, chills, worsening renal function
History of Present Illness:
Justin Kearney is an 84-year-old male (known to Dr. Lin, his primary education manager), with coronary artery disease (CABG 2005) HFpEF, mild/moderate tricuspid regurgitation, PE (1 year of apixaban), CKD stage III, hypertension, GERD, INDIA, and
chronic anemia who presented to the emergency department with fever, chills, and worsening renal function prompted by his PCP. He was experiencing associated fatigue. Cardiology was consulted for an episode of chest pain overnight. He had two
episodes. He was trying to get himself comfortable when he had anterior chest pressure. He is not sure if he had discomfort in his jaw with the second event. No associated diaphoresis, SOB, nor dizziness. The chest pressure lasted 30 minutes both
times. Initial troponin < 0.012. EKG with anterolateral ST abnormality during first episode but has resolved during second event. This has happened to him a few times at home, always at night and always in bed. No further discomfort.
Past Medical History
Past Medical History: CAD (CABG 2005), CHF, HTN, Hypercholesterolemia, NIDDM, Renal Failure (CKD) and Other (INDIA, PE [2019], INDIA)
Past Surgical History: Cardiac (CABG 2005) and Orthopedic
Social History
Tobacco: Former Smoker
Alcohol: None
Drug: None
Personal:
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
Family History
Family History: Reviewed & Not Pertinent
Allergies / Home Medications
Allergy/AdvReac Type Severity Reaction Status Date / Time
Penicillins Allergy Itching Verified 09/26/24 18:07
�Medication �Instructions �Recorded �Confirmed �Type
levothyroxine 112 mcg tablet 112 mcg PO DAILY Thyroid 11/17/17 09/26/24 History
carvedilol 12.5 mg tablet 12.5 mg PO BID Blood Pressure 03/31/19 09/26/24 History
omeprazole 40 mg capsule,delayed 40 mg PO Daily Gastrointestinal 03/31/19 09/26/24 History
release Issue
rosuvastatin 20 mg tablet 20 mg PO QPM High Cholesterol 03/31/19 09/26/24 History
olmesartan 40 mg tablet (Benicar) 40 mg PO QPM Blood Pressure 11/29/19 09/26/24 History
acetaminophen 500 mg tablet 500 mg PO Q6HPRN PRN mild pain 02/08/20 09/26/24 History
cyanocobalamin (vitamin B-12) 1,000 mcg PO HS Supplement 02/08/20 09/26/24 History
1,000 mcg tablet
amlodipine 5 mg tablet 5 mg PO DAILY Blood Pressure 10/14/23 09/26/24 History
finasteride 5 mg tablet 5 mg PO QPM BPH 10/14/23 09/26/24 History
tamsulosin 0.4 mg capsule 0.4 mg PO DAILY Urinary Issue 10/14/23 09/26/24 History
aspirin 81 mg tablet,delayed 81 mg PO DAILY Heart 09/14/24 09/26/24 History
release Disease/Condition
dapagliflozin propanediol 10 mg 10 mg PO DAILY Diabetes 09/14/24 09/26/24 History
tablet (Farxiga)
metformin 500 mg tablet 500 mg PO DAILY Diabetes 09/14/24 09/26/24 History
isosorbide mononitrate 30 mg 30 mg PO DAILY #30 tabs 09/16/24 09/26/24 Rx
tablet,extended release 24 hr
Review of Systems
-
History Source: Patient
All other systems: Negative unless noted
Constitutional: Fatigue
EENT: No Symptoms
Respiratory: No Symptoms
Cardiac: No Symptoms
Abdomen/GI: No Symptoms
: No Symptoms
Musculoskeletal: No Symptoms
Skin: No Symptoms
Neurological: No Symptoms
Endocrine: No Symptoms
Hematologic/Lymphatic: No Symptoms
Physical Exam
Vital Signs
Temp Pulse Resp BP Pulse Ox
98.3 F 89 18 154/70 93
09/27/24 02:25 09/27/24 02:25 09/27/24 02:25 09/27/24 02:25 09/27/24 02:25
Lab Results
09/27/24 05:49
09/27/24 05:49
Troponin I < 0.012 ng/ml 09/27/24 02:52
Yuu-I-Kbxoaoebvfc Pept 3350 pg/ml 09/26/24 14:14
Physical Exam
General: Well Developed, Well Nourished, No Apparent Distress and Comfortable
HEENT: Normocephalic, Anicteric and Moist Mucous Membranes
Respiratory: Clear and Non Labored Respirations
Cardiac: S1/S2 and Regular Rhythm; Negative Peripheral Edema
Breast: Deferred by me
GI: Soft, Non Tender, Non Distended and Normal Bowel Sounds
Rectal: Deferred by Provider
Genito-urinary: No Costovertebral Tender
Musculoskeletal: No Clubbing, No Cyanosis and No Edema
Skin: Warm and Dry
Neuro: Awake, Alert and Oriented
Hematologic/Lymphatic: No Lymphadenopathy
Psych: Calm
Impression / Plan
-
I/P: 84M with coronary artery disease (CABG 2007) HFpEF, mild/moderate tricuspid regurgitation, PE (1 year of apixaban), CKD stage III, hypertension, GERD, INDIA, and chronic anemia who presented to the emergency department with fever, chills, and
worsening renal function prompted by his PCP.
Primary education manager: Dr. Lin
Chest pain
- Currently CP free, lasted 30 minutes overnight (pressure), unclear if it radiated, no associated symptoms
- First event, anterolateral ST abnormality, second event resolved
- EKG with anterolateral ST abnormality, new, now improved
- Troponin at time of event <0.012, trend
Fever with chills
- No documented fever overnight, without leukocytosis, per primary service
DOMENIC on CKD3a - improved since admission
- Bactrim stopped, olmesartan and Farxiga on hold
- Nephrology following
CAD
- CABG 2005
- Cardiac catheterization and Lexiscan as below, the plan is for medical management with underlying CKD
- Continue medical management, continue aspirin, statin, and beta-herber
HFpEF, chronic
- Appears euvolemic
- Consider resumption of Farxiga, per nephrology
- Continue daily weight, I/O
NIDDM, with hyperglycemia, HgbA1c 7.4%
Anemia of chronic disease
Prior PE, completed one year of apixaban
Former smoker
INDIA, declines CPAP
SUBJECTIVE:
As above.
DATA:
Lexiscan nuclear stress test, 09/15/2024:
Abnormal Lexiscan stress test.
Negative ECG for ischemia after Lexiscan administration.
Perfusion imaging reveals a medium area of moderately decreased perfusion that is partially reversible in the basal to mid inferior wall consistent with infarction with residual ischemia;
however, significant diaphragmatic attenuation artifact is also possible and cannot be excluded.
Systolic function is normal. The ejection fraction is 65%.
Stress Risk is moderate risk study (1 - 3% NH or /year).
Transthoracic echocardiogram, 09/14/2024:
LV ejection fraction is 70-75%. No regional wall motion abnormalities are seen.
Normal right ventricular size and function.
Mild mitral stenosis; mean gradient 4 mmHg.
Aortic sclerosis without stenosis.
Mild to moderate tricuspid regurgitation. Estimated pulmonary artery pressure
of 30-35 mmHg.
Compared to previous echo on 03/16/2023, mild mitral stenosis is now present.
Slightly progressive tricuspid regurgitation is also noted.
Cardiac catheterization, 10/14/2023:
1. Expectant management after cardiac catheterization via left radial approach.
2. Limited weight bearing on the left wrist for one week.
3. Continue current medical management.
4. If the patient were to have anginal chest pain, the insertion of the SVG to OM1 graft is at a generally favorable angle to allow for PCI of the 75% lesion if that was felt to be an appropriate maneuver for anginal chest pain, but the patient's
episode of chest pain is not convincing for true anginal equivalent and his coronary artery disease appears stable.
Data Reviewed
-
EKG: Report Reviewed by me (As above)
Medical Tests (Nuc Med, Echo etc): Report Reviewed by me (Cardiac testing as above)
Labs: Labs Reviewed by me
Old Records: Reviewed
[2024-09-27] MEDS: COREG 12.5 MG PO ×2 (08:17→20:00)
[2024-09-27] MEDS: IMDUR (EXTENDED RELEASE) 30 MG PO (08:17)
[2024-09-27] MEDS: NORVASC 5 MG PO (08:17)
[2024-09-27] MEDS: FLOMAX 0.4 MG PO (08:17)
[2024-09-27] MEDS: PROTONIX 40 MG PO (08:17)
[2024-09-27] MEDS: HEPARIN 5000 UNITS SC (08:18)
[2024-09-27] MEDS: ASPIR LOW (ENTERIC COATED) 81 MG PO (08:18)
[2024-09-27 08:20] VITALS: BMI 28.3
[2024-09-27 10:00] VITALS: BMI 28.3
--- NOTE | 2024-09-27 10:30 | CM ---
CM reviewed chart, patient seen bedside, initial assessment completed. Patient resides with his in a two story home, about 6 steps to enter, bedroom on second floor. Patient reports having a walker and cane at home after past surgery, does not
use device for ambulation currently. Patient reports [facility] in the past, denies SNF. Patient confirms PCP Dante Hoover, pharmacy [facility], patient unsure if he has prescription coverage. Patient denies insecurities at home. Cardiology and
Nephrology consulted. CM will continue to follow for all discharge planning needs.
Plan; home with likely
[2024-09-27 10:46] LABS: Troponin I 0.031 ng/ml
[2024-09-27 11:00] VITALS: BP 117/52
[2024-09-27 11:41] LABS: Glucose - Point of Care 113 mg/dl (70-99)
[2024-09-27 12:49] LABS: APTT 30.5 Sec (23.4-35.0)
[2024-09-27] MEDS: HEPARIN 4000 UNITS IV (12:54)
[2024-09-27] MEDS: HEPARIN 25000 UNITS/250 ML IV (13:12)
--- NOTE | 2024-09-27 13:50 | W.PN.NEPH.PH ---
Today's Communication / Plan
-
Wean off IVF
Assessment/Plan
-
IMP:
AMBROCIO with CKD [id number] cr 1.2, follows Dr Caldera
HYperkalemia
Met acidosis-non gap
Anemia
CAD s/p CABG - chronic
DM2 - A1C 7.1%
BPH
Hypothyroidism
DCHF
GERD
OA
Plan;
A/w abnormal labs from recent d/c
AMBROCIO-suspect again from Bactrim and ARB use
cont to hold both, cr improving with IVF, non oliguric
follow bladder scan
non gap met acidosis improving with IVF bicarb -stop tonight
Avoid nephrotoxins and hold ARB and Farxiga
hyperkalemia improving
BP stable
follow h/h, check iron panel
labs in am
d/w pt
-
-
Date of Service: September 27, 2024
CC / HPI / ROS
-
Chief Complaint:
Ambrocio with CKD3a
History of Present Illness:
cr better at 1.8. non oliguric with out [place]
BP stbale, k normal
bicarb better at 23
Review of Systems:
no fever
no cp or sob
feels well
Labs
-
Labs:
WBC 4.4 10^3/uL (4.8-10.8) L 09/27/24 05:49
RBC 3.38 10^6/uL (4.70-6.10) L 09/27/24 05:49
Hgb 9.4 g/dL (13.0-18.0) L 09/27/24 05:49
Hct 27.6 % (39.0-52.0) L 09/27/24 05:49
Plt Count 211 10^3/uL (130-400) 09/27/24 05:49
Sodium 140 mmol/L (135-145) 09/27/24 05:49
Potassium 5.0 mmol/L (3.5-5.1) 09/27/24 05:49
Chloride 108 mmol/L (98-107) H 09/27/24 05:49
Carbon Dioxide 23 mmol/L (22-30) 09/27/24 05:49
BUN 45 mg/dl (9-20) H 09/27/24 05:49
Creatinine 1.8 mg/dL (0.7-1.3) H 09/27/24 05:49
eGFR 36.66 09/27/24 05:49
Glucose 104 mg/dl (70-99) H 09/27/24 05:49
Calcium 9.2 mg/dl (8.4-10.2) 09/27/24 05:49
Run-D-Ukrsvjogolf Pept 3350 pg/ml 09/26/24 14:14
Albumin 3.1 g/dl (3.5-5.0) L 09/27/24 05:49
Physical Exam
-
Vital Signs:
Vital Signs
Temp Pulse Resp BP Pulse Ox
98.4 F 71 16 117/52 95
09/27/24 11:00 09/27/24 11:00 09/27/24 11:00 09/27/24 11:00 09/27/24 11:00
Cardiovascular:: Regular rate and rhythm
Respiratory:: Bilateral: CTA
Lung Excursion:: Normal
Abdomen:: Nontender and Soft
Extremity Edema:: None: Bilateral:
[place] Catheter: No
--- NOTE | 2024-09-27 14:14 | W.PN.HOSP.TC ---
Today's Communication/Plan
-
Heparin gtt
Assessment / Plan
Assessment / Plan
84-year-old male with fatigue and chills and worsening kidney function. Patient was also admitted for chest pain from 09/14/2024 to 09/16/2024 Bactrim was stopped at that time but he mistakenly restarted it , took for 2 days realized and and stopped it.
Echo 09/14/2024-EF 70 to 75%. No regional wall motion abnormalities. Normal RV size and function. Mild MS. Aortic sclerosis without stenosis. Mild to moderate TR. PA pressure 30 to 35 mmHg.
CVS: S1-S2 normal
Chest: CTA B/L
Abdomen: Soft, NT / Bowel sounds present
Extremities: No edema
# Acute kidney injury on CKD stage III
Hyperkalemia
Possibly secondary to Bactrim
Creatinine 2.8 on admission
Hold dapagliflozin, metformin, olmesartan
Lokelma started
Hyperkalemia improved. Creatinine improving
IV fluids with bicarb
Check urinalysis and urine sodium
Nephrology has been consulted
# Chest pain
Recent admission for chest pain evaluation
Stress test revealed possible mild ischemia in the inferior wall-medical management was recommended
History of coronary disease and CABG in 2005
Trop neg
Treating as [place]
Heparin gtt
Continue aspirin, beta-herber, statin, Imdur.
Hold olmesartan
Cardiology consulted
# Chronic HFpEF-hold dapagliflozin, olmesartan. Continue Coreg
# Diabetes-hemoglobin A1c-7.1 on 09/15/2024
Hold metformin, dapagliflozin
Accu-Cheks with sliding scale coverage
# Hyperlipidemia/atherosclerosis-continue statin and antiplatelets
# Hypertension-continue amlodipine, carvedilol. Hold olmesartan
# Hypothyroidism-continue levothyroxine
# Prostate disease-continue finasteride, Flomax
# Anemia of chronic disease
# Emphysema
# GERD/hiatal hernia-continue PPI
# History of thoracotomy and pleurectomy 1989
# Sleep apnea-not on CPAP since 2018
# History of gout
# Diverticulosis
# Ex-smoker
D/W Cardiology, Possible cath again. CKD is an issue, nephrology consulted.
Part of this note was created using voice recognition system. Occasional wrong word or��sound alike� substitutions may have inadvertently occurred due to the inherent limitations of voice recognition software. If noted kindly bring it to my
attention for correction.
Anticipated Discharge: 24 - 48 hours
Subjective/Interval History
-
Date of Service: September 27, 2024
Objective Data
-
Labs:
Laboratory Results
09/27/24 09/27/24 09/27/24
05:49 12:01 19:30
WBC 4.4 L
Hgb 9.4 L
Hct 27.6 L
Plt Count 211
APTT 30.5 Pending
Sodium 140
Potassium 5.0
Chloride 108 H
Carbon Dioxide 23
BUN 45 H
Creatinine 1.8 H
Glucose 104 H
Calcium 9.2
Total Bilirubin 0.7
AST 24
ALT 29
Alkaline Phosphatase 127 H
Vital Signs:
Vital Signs
Temp Pulse Resp BP Pulse Ox
98.4 F 71 16 117/52 95
09/27/24 11:00 09/27/24 11:00 09/27/24 11:00 09/27/24 11:00 09/27/24 11:00
I&O
09/26/24 09/27/24 09/28/24
06:59 06:59 06:59
Output Total 1824
Balance -182 / -182
[2024-09-27 14:30] LABS: Iron 26 ug/dl (49-181)
[2024-09-27 14:39] LABS: Percent Saturation 13 % (20-50); Total Iron Binding Capacity 197 ug/dl (261-462)
[2024-09-27 15:27] LABS: Troponin I 0.041 ng/ml
[2024-09-27 16:03] VITALS: BP 134/59
[2024-09-27] MEDS: CRESTOR 20 MG PO (17:10)
[2024-09-27] MEDS: PROSCAR 5 MG PO (17:10)
[2024-09-27 17:12] LABS: Glucose - Point of Care 114 mg/dl (70-99)
[2024-09-27 19:42] VITALS: BP 132/58
[2024-09-27] MEDS: VITAMIN B-12 1000 MCG PO (20:00)
[2024-09-27 20:07] LABS: APTT 45.6 Sec (23.4-35.0)
[2024-09-27 20:18] LABS: Troponin I 0.033 ng/ml
[2024-09-27 20:53] LABS: Glucose - Point of Care 150 mg/dl (70-99)
[2024-09-27 23:11] VITALS: BP 141/54
[2024-09-28 03:30] VITALS: BP 136/57
[2024-09-28 04:29] LABS: APTT 83.7 Sec (23.4-35.0)
[2024-09-28 04:33] VITALS: BP 136/57
[2024-09-28] MEDS: SYNTHROID 112 MCG PO (05:05)
--- NOTE | 2024-09-28 06:30 | PTCARENOTE ---
There was a [employer] Client Special [employer] Cook Downtime on 09/28/2024 from 0100 to 09/28/2024 at 0415. Downtime documentation of patient's care, including medication administrations, has been reconciled in the electronic record per guidelines. Refer to the
patient's paper chart under the miscellaneous tab to see printed paper medication records and downtime forms.
[2024-09-28 07:00] VITALS: BP 105/65
[2024-09-28] MEDS: COREG 12.5 MG PO (07:51)
[2024-09-28] MEDS: PROTONIX 40 MG PO (07:51)
[2024-09-28] MEDS: IMDUR (EXTENDED RELEASE) 30 MG PO ×2 (07:51→09:28)
[2024-09-28] MEDS: NORVASC 5 MG PO (07:51)
[2024-09-28] MEDS: FLOMAX 0.4 MG PO (07:51)
[2024-09-28] MEDS: ASPIR LOW (ENTERIC COATED) 81 MG PO (07:52)
[2024-09-28 08:10] LABS: Glucose - Point of Care 132 mg/dl (70-99)
--- NOTE | 2024-09-28 09:02 | W.PN.CD ---
Today's Communication / Plan
-
-d/w patient will continue med management
-will stop heparin
-will increase imdur
-f/u in the office.
-will sign off
Impression / Plan
-
I/P: 84M with coronary artery disease (CABG 2007) HFpEF, mild/moderate tricuspid regurgitation, PE (1 year of apixaban), CKD stage III, hypertension, GERD, [place], and chronic anemia who presented to the emergency department with fever, chills, and
worsening renal function prompted by his PCP.
Primary remote recruiter: Dr. Lin
Chest pain
- Currently CP free, lasted 30 minutes overnight (pressure), unclear if it radiated, no associated symptoms
- First event, anterolateral ST abnormality, second event resolved
- EKG with anterolateral ST abnormality, new, now improved
- Troponin stayed negative, no easy target, no further chest pain
-ischemia on stress didn't match possible target
-DOMENIC on this hospitalization
-focused echo without regional wall motion abnormality
-d/w patient will continue med management
-will stop heparin
-will increase imdur
-f/u in the office.
Fever with chills
- No documented fever overnight, without leukocytosis, per primary service
DOMENIC on CKD3a - improved since admission
- Bactrim stopped, olmesartan and Farxiga on hold
- Nephrology following
CAD
- CABG 2005
- Cardiac catheterization and Lexiscan as below, the plan is for medical management with underlying CKD
- Continue medical management, continue aspirin, statin, and beta-herber
HFpEF, chronic
- Appears euvolemic
- Consider resumption of Farxiga, per nephrology
- Continue daily weight, I/O
NIDDM, with hyperglycemia, HgbA1c 7.4%
Anemia of chronic disease
Prior PE, completed one year of apixaban
Former smoker
[place], declines CPAP
SUBJECTIVE:
no further chest pain
DATA:
Lexiscan nuclear stress test, 09/15/2024:
Abnormal Lexiscan stress test.
Negative ECG for ischemia after Lexiscan administration.
Perfusion imaging reveals a medium area of moderately decreased perfusion that is partially reversible in the basal to mid inferior wall consistent with infarction with residual ischemia;
however, significant diaphragmatic attenuation artifact is also possible and cannot be excluded.
Systolic function is normal. The ejection fraction is 65%.
Stress Risk is moderate risk study (1 - 3% [place] or /year).
Transthoracic echocardiogram, 09/14/2024:
LV ejection fraction is 70-75%. No regional wall motion abnormalities are seen.
Normal right ventricular size and function.
Mild mitral stenosis; mean gradient 4 mmHg.
Aortic sclerosis without stenosis.
Mild to moderate tricuspid regurgitation. Estimated pulmonary artery pressure
of 30-35 mmHg.
Compared to previous echo on 03/16/2023, mild mitral stenosis is now present.
Slightly progressive tricuspid regurgitation is also noted.
Cardiac catheterization, 10/14/2023:
1. Expectant management after cardiac catheterization via left radial approach.
2. Limited weight bearing on the left wrist for one week.
3. Continue current medical management.
4. If the patient were to have anginal chest pain, the insertion of the SVG to OM1 graft is at a generally favorable angle to allow for PCI of the 75% lesion if that was felt to be an appropriate maneuver for anginal chest pain, but the patient's
episode of chest pain is not convincing for true anginal equivalent and his coronary artery disease appears stable.
Physical Exam
Vital Signs/Labs
Vital Signs
Temp Pulse Resp BP Pulse Ox
99 F 78 18 105/65 91
09/28/24 07:00 09/28/24 07:00 09/28/24 07:00 09/28/24 07:00 09/28/24 07:00
09/27/24 09/28/24 09/29/24
06:59 06:59 06:59
Actual Weight 176 lb 8 oz 175 lb 9 oz
09/27/24 05:49
APTT 83.7 Sec (23.4-35.0) H 09/28/24 02:32
09/26/24
14:14
Ucn-Z-Ekggermhpcw Pept 3350
LAB Results
09/27/24 09/27/24 09/27/24
02:52 09:57 14:46
Troponin I < 0.012 0.031 D 0.041 H* D
09/27/24
19:48
Troponin I 0.033
Physical Exam
Constitutional: No acute distress
Cardiovascular: Rhythm & rate is regular, Pedal edema is absent, JVD pressure is normal, Systolic murmur absent and Diastolic murmur absent
Respiratory: Respiratory effort normal, Lungs clear to auscul., Wheeze Absent, Crackles Absent and Rhonchi Absent
Neuro/Psych: AO x 3
Data Reviewed
-
Date of Service: September 28, 2024
Medical Decision Making: Review of Case with other Provider (dr jolley stop heparin continue med managment)
[2024-09-28 09:53] VITALS: BMI 28.5
[2024-09-28 09:56] LABS: APTT 75.7 Sec (23.4-35.0)
[2024-09-28 10:57] LABS: Blood Urea Nitrogen 32 mg/dl (9-20); Calcium 8.5 mg/dl (8.4-10.2); Carbon Dioxide 27 mmol/L (22-30); Chloride 103 mmol/L (98-107); Estimated Creatinine Clearance 41 ml/min; Glucose 131 mg/dl (70-99); Potassium 4.3 mmol/L (3.5-5.1); Sodium 136 mmol/L (135-145); eGFR 59.63
[2024-09-28 11:38] LABS: Glucose - Point of Care 136 mg/dl (70-99)
[2024-09-28 11:46] VITALS: BP 121/48
--- NOTE | 2024-09-28 12:15 | W.PN.NEPH.PH ---
Today's Communication / Plan
-
Creatinine at baseline
Blood pressure stable
Still holding SGLT2 inhibitor and ARB, can add back at discharge
Assessment/Plan
-
IMP:
AMBROCIO with CKD [id number] cr 1.2, follows Dr Caldera
HYperkalemia
Met acidosis-non gap
Anemia
CAD s/p CABG - chronic
DM2 - A1C 7.1%
BPH
Hypothyroidism
DCHF
GERD
OA
Plan;
A/w abnormal labs from recent d/c
AMBROCIO-suspect again from Bactrim and ARB use
continue to hold both, cr improving with IVF, non oliguric and creatinine now at baseline 1.2
follow bladder scan
non gap met acidosis improved and now off sodium bicarb drip
Avoid nephrotoxins and hold ARB and Farxiga
hyperkalemia resolved
BP stable
follow h/h, check iron panel
labs in am
d/w pt
-
-
Date of Service: September 28, 2024
CC / HPI / ROS
-
Chief Complaint:
Ambrocio with CKD3a
History of Present Illness:
cr better at 1.2. non oliguric with out [place]
Hemodynamically stable
bicarb better at 27
Review of Systems:
no fever
no cp or sob
feels well
Labs
-
Labs:
WBC 4.4 10^3/uL (4.8-10.8) L 09/27/24 05:49
RBC 3.38 10^6/uL (4.70-6.10) L 09/27/24 05:49
Hgb 9.4 g/dL (13.0-18.0) L 09/27/24 05:49
Hct 27.6 % (39.0-52.0) L 09/27/24 05:49
Plt Count 211 10^3/uL (130-400) 09/27/24 05:49
Sodium 136 mmol/L (135-145) 09/28/24 09:08
Potassium 4.3 mmol/L (3.5-5.1) 09/28/24 09:08
Chloride 103 mmol/L (98-107) 09/28/24 09:08
Carbon Dioxide 27 mmol/L (22-30) 09/28/24 09:08
BUN 32 mg/dl (9-20) H 09/28/24 09:08
Creatinine 1.2 mg/dL (0.7-1.3) 09/28/24 09:08
eGFR 59.63 09/28/24 09:08
Glucose 131 mg/dl (70-99) H 09/28/24 09:08
Calcium 8.5 mg/dl (8.4-10.2) 09/28/24 09:08
Vbc-H-Hsklkhtpqvp Pept 3350 pg/ml 09/26/24 14:14
Albumin 3.1 g/dl (3.5-5.0) L 09/27/24 05:49
Physical Exam
-
Vital Signs:
Vital Signs
Temp Pulse Resp BP Pulse Ox
98.2 F 66 20 121/48 95
09/28/24 11:46 09/28/24 11:46 09/28/24 11:46 09/28/24 11:46 09/28/24 11:46
Cardiovascular:: Regular rate and rhythm
Respiratory:: Bilateral: CTA
Lung Excursion:: Normal
Abdomen:: Nontender and Soft
Extremity Edema:: None: Bilateral:
[place] Catheter: No
--- NOTE | 2024-09-28 13:21 | CM ---
CM reviewed chart, patient seen bedside. Patient inquiring about discharge, reports he has transportation home, denies needs from CM. IMM verbally reviewed, provided with copy, placed in chart. TT to Hospitalist. CM will continue to follow for all
discharge planning needs.
Plan; home no needs likely
--- NOTE | 2024-09-28 13:57 | W.PN.HOSP.TC ---
Addendum entered and electronically signed by Nick Condon MD 09/28/24 14:24:
Spoke to and updated
Original Note:
Today's Communication/Plan
-
Discharge
Assessment / Plan
Assessment / Plan
84-year-old male with fatigue and chills and worsening kidney function. Patient was also admitted for chest pain from 09/14/2024 to 09/16/2024 Bactrim was stopped at that time but he mistakenly restarted it , took for 2 days realized and and stopped it.
Echo 09/14/2024-EF 70 to 75%. No regional wall motion abnormalities. Normal RV size and function. Mild MS. Aortic sclerosis without stenosis. Mild to moderate TR. PA pressure 30 to 35 mmHg.
CVS: S1-S2 normal
Chest: CTA B/L
Abdomen: Soft, NT / Bowel sounds present
Extremities: No edema
# Acute kidney injury on CKD stage III
DOMENIC Resolved
Hyperkalemia
Possibly secondary to Bactrim
Creatinine 2.8 on admission, now 1.2
Restart dapagliflozin, metformin, olmesartan
Lokelma started
Hyperkalemia improved. Creatinine improving
# Chest pain
Recent admission for chest pain evaluation
Stress test revealed possible mild ischemia in the inferior wall-medical management was recommended
History of coronary disease and CABG in 2005
Trop neg
Treating as stable angina
Off Heparin gtt
Continue aspirin, beta-herber, statin, Imdur.
Restart olmesartan
Stable angina
Imdur increased.
# Chronic HFpEF- dapagliflozin, olmesartan. Continue Coreg
# Diabetes-hemoglobin A1c-7.1 on 09/15/2024
metformin, dapagliflozin restart
Accu-Cheks with sliding scale coverage
# Hyperlipidemia/atherosclerosis-continue statin and antiplatelets
# Hypertension-continue amlodipine, carvedilol,olmesartan
# Hypothyroidism-continue levothyroxine
# Prostate disease-continue finasteride, Flomax
# Anemia of chronic disease
# Emphysema
# GERD/hiatal hernia-continue PPI
# History of thoracotomy and pleurectomy 1989
# Sleep apnea-not on CPAP since 2018
# History of gout
# Diverticulosis
# Ex-smoker
D/W Cardiology, and nephrology
Left message for
D/W case management
OK for discharge
More than 30 minutes spent in discharge including
Final examination of the patient
Summarizing hospital stay
Instructions for continuing care to all relevant caregivers
Preparation of discharge records, prescriptions, and referral forms
Total time spent (in minutes): 36 min
Part of this note was created using voice recognition system. Occasional wrong word or��sound alike� substitutions may have inadvertently occurred due to the inherent limitations of voice recognition software. If noted kindly bring it to my
attention for correction.
Anticipated Discharge: Today
Subjective/Interval History
-
Date of Service: September 28, 2024
Objective Data
-
Labs:
Laboratory Results
09/28/24 09/28/24
02:32 09:08
APTT 83.7 H 75.7 H
Sodium 136
Potassium 4.3
Chloride 103
Carbon Dioxide 27
BUN 32 H
Creatinine 1.2
Glucose 131 H
Calcium 8.5
Vital Signs:
Vital Signs
Temp Pulse Resp BP Pulse Ox
98.2 F 66 20 121/48 95
09/28/24 11:46 09/28/24 11:46 09/28/24 11:46 09/28/24 11:46 09/28/24 11:46
I&O
09/27/24 09/28/24 09/29/24
06:59 06:59 06:59
Intake Total 360 / 360 480 / 480
Output Total 1825 / 1825 600 / 600 650 / 650
Balance -1824 / -1824 -240 / -240 -170 / -170
--- NOTE | 2024-09-28 14:00 | W.DS.TRANS ---
Addendum entered and electronically signed by Nick Condon MD 09/28/24 16:48:
Dictation- [id number]
Original Note:
DC Summary - [employer]
-
Discharge Instructions:
Sleep Apnea Risk Low
Discharge Diagnosis/Procedures Acute kidney injury
Chest pain
Chronic heart failure
Diabetes
High cholesterol
Hypertension
Hypothyroidism
Prostate disease
Anemia
Emphysema
GERD/hiatal hernia
Diet 2 Gram Sodium,Diabetic, Carb Controlled,Restrict
fluids to 64 oz
Activity As tolerated
Driving Restrictions As prior to admission
Other Services VN
Specialty Instructions Weigh Daily
Instructions:
Stand-Alone Forms:
Changes to Home Medications: Yes
Discharge Medications:
DC Medications w/original date entered in [facility]
levothyroxine 112 mcg tablet 112 mcg PO DAILY Thyroid 11/17/17
carvedilol 12.5 mg tablet 12.5 mg PO BID Blood Pressure 03/31/19
omeprazole 40 mg capsule,delayed release 40 mg PO Daily Gastrointestinal Issue 03/31/19
rosuvastatin 20 mg tablet 20 mg PO QPM High Cholesterol 03/31/19
olmesartan 40 mg tablet (Benicar) 40 mg PO QPM Blood Pressure 11/29/19
acetaminophen 500 mg tablet 500 mg PO Q6HPRN PRN mild pain 02/08/20
cyanocobalamin (vitamin B-12) 1,000 mcg tablet 1,000 mcg PO HS Supplement 02/08/20
amlodipine 5 mg tablet 5 mg PO DAILY Blood Pressure 10/14/23
finasteride 5 mg tablet 5 mg PO QPM BPH 10/14/23
tamsulosin 0.4 mg capsule 0.4 mg PO DAILY Urinary Issue 10/14/23
aspirin 81 mg tablet,delayed release 81 mg PO DAILY Heart Disease/Condition 09/14/24
dapagliflozin propanediol 10 mg tablet (Farxiga) 10 mg PO DAILY Diabetes 09/14/24
metformin 500 mg tablet 500 mg PO DAILY Diabetes 09/14/24
isosorbide mononitrate 30 mg tablet,extended release 24 hr 60 mg (2 x 30 mg) PO DAILY Heart disease/condition #30 tabs 09/28/24
Home Medication Changes
Imdur increased
Pending Results: No
== END 2024-09-28 15:02 | disposition home health service (06) | DRG 292 ==
LOC: 4 WEST ACU 16:08
PROVIDERS: Emergency Medicine; Nurse Practitioner Gerontology; ADMITTING PHYSICIAN Hospitalist; ATTENDING PHYSICIAN Hospitalist; CONSULT PHYSICIAN Internal Medicine; CONSULT PHYSICIAN Internal Medicine Cardiovascular Disease; EMERGENCY PHYSICIAN Student in an Organized Health Care Education/Training Program; FAMILY PHYSICIAN Registered Nurse
DX: I13.0 Hypertensive heart and chronic kidney disease with heart failure and stage 1 through stage 4 chronic kidney disease, or unspecified chronic kidney disease (principal); E87.20 Acidosis, unspecified; N17.9 Acute kidney failure, unspecified; I50.32 Chronic diastolic (congestive) heart failure; E11.22 Type 2 diabetes mellitus with diabetic chronic kidney disease; E78.00 Pure hypercholesterolemia, unspecified; E03.9 Hypothyroidism, unspecified; D63.1 Anemia in chronic kidney disease; N40.0 Benign prostatic hyperplasia without lower urinary tract symptoms; J43.9 Emphysema, unspecified; K21.9 Gastro-esophageal reflux disease without esophagitis; K44.9 Diaphragmatic hernia without obstruction or gangrene; Z79.82 Long term (current) use of aspirin; I25.10 Atherosclerotic heart disease of native coronary artery without angina pectoris; Z95.1 Presence of aortocoronary bypass graft; Z87.891 Personal history of nicotine dependence; Z88.0 Allergy status to penicillin; Z79.84 Long term (current) use of oral hypoglycemic drugs; Z79.890 Hormone replacement therapy; Z79.899 Other long term (current) drug therapy; Z86.711 Personal history of pulmonary embolism; E87.5 Hyperkalemia; G31.84 Mild cognitive impairment of uncertain or unknown etiology; G47.33 Obstructive sleep apnea (adult) (pediatric); N18.31 Chronic kidney disease, stage 3a; I49.3 Ventricular premature depolarization
CPT/HCPCS: 93308; 36415; 80048; 80053; 82728; 82962; 83540; 83550; 83880; 84484; 85025; 85730; 93005; 99285